=== PATIENT | female | born 1955 | race Caucasian/White ===

== ENCOUNTER → 2017-03-21 | Outpatient (CLI) | payer OTHER ==
--- NOTE | 2017-03-23 07:51 | MM ---
Reason for exam: screening (asymptomatic). Last mammogram was performed 4 years and 1 month ago. History: Patient is postmenopausal. Benign excisional biopsy of the left breast, December 30, 1997. Physical Findings: A clinical breast exam by your physician is recommended on an annual basis and results should be correlated with mammographic findings. MG 3D Screening Mammo W/Cad Bilateral CC and MLO view(s) were taken. Prior study comparison: February 12, 2013, bilateral digital screening mammo w/CAD. January 14, 2010, bilateral digital screening mammogram. The breast tissue is heterogeneously dense. This may lower the sensitivity of mammography. No significant changes when compared with prior studies. ASSESSMENT: Negative, BI-RAD 1 RECOMMENDATION: Routine screening mammogram of both breasts in 1 year.
== END | disposition home or self-care (01) ==
LOC: RADMAMWWP 09:20
PROVIDERS: ATTEND Obstetrics & Gynecology
DX: Z12.31 Encounter for screening mammogram for malignant neoplasm of breast (principal)
CPT/HCPCS: 77063; G0202

== ENCOUNTER → 2017-12-27 | Outpatient (CLI) | payer OTHER | END | disposition home or self-care (01) | LOC: RADMRIMAIN 17:47 | PROVIDERS: ATTEND Internal Medicine Hematology & Oncology | DX: C50.111 Malignant neoplasm of central portion of right female breast (principal) | CPT/HCPCS: 82565 ==

== ENCOUNTER → 2017-12-29 | Outpatient (CLI) | payer OTHER ==
--- NOTE | 2018-01-05 09:22 | BMR ---
EXAMINATION TYPE: MR breast BILAT wo/w con DATE OF EXAM: 12/29/2017 COMPARISON: Mammogram 03/21/2017 HISTORY: Breast cancer TECHNIQUE: A series of fat and water weighted images in the long and short axis views of both breasts are obtained in conjunction with dynamic contrast MRI with subtraction technique. The patient was i njected with 10 mL intravenous Gadavist gadolinium contrast. Three-dimensional and additional postp rocessing imaging is created on independent workstation and reviewed during official interpretation o f this study. FINDINGS: Right breast shows large asymmetric area of suspicious abnormal enhancement which has poorl y defined margins, extends to the nipple and skin in the area over the periareolar region and measure s at least 6 to 7 cm in diameter and is predominantly in the upper aspect of the right breast in the anterior and middle position. Additionally, an enlarged right axillary lymph node is present. Within the right middle lobe incidental note is made of a focus of abnormal soft tissue which is ill-defined . No internal mammary adenopathy evident. Left breast shows background stippled foci of enhancement. No axillary or internal mammary adenopathy . No suspicious mass like enhancement. T2 bright foci within the central portion of the left breast c ompatible with cysts. IMPRESSION: Right breast known breast carcinoma, BI-RADS 6. Findings suspicious for metastatic disease to the rig ht axilla, indeterminate right middle lobe abnormal soft tissue, chest CT is suggested. Left breast benign, BI-RADS 2.
== END | disposition home or self-care (01) ==
LOC: RADMRIMAIN 11:35
PROVIDERS: ATTEND Internal Medicine Hematology & Oncology
DX: C50.111 Malignant neoplasm of central portion of right female breast (principal)
CPT/HCPCS: 77059; 0159T; A9581

== ENCOUNTER → 2018-04-10 | Outpatient (CLI) | payer OTHER ==
--- NOTE | 2018-04-10 12:52 | XR ---
EXAMINATION TYPE: XR lumbar spine 3V, XR sacrum coccyx 3 views DATE OF EXAM: 04/10/2018 COMPARISON: NONE HISTORY: 62-year-old female with low back pain FINDINGS: Lumbar spine: 5 lumbar type vertebral bodies. Mild multilevel degenerative disc disease. Facet arthropathy lower roshni mbar spine. Alignment is maintained and vertebral body heights are preserved. Sacrum coccyx: The SI joints appear symmetric and intact as does the pubic symphysis. Small delineation to the arcua te lines of the sacrum. No angulated or displaced sacrococcygeal fracture. IMPRESSION: 1. Lumbar spine: Mild multilevel degenerative disc disease. Facet arthropathy lower lumbar spine. No vertebral compression collapse or malalignment. 2. Sacrum and coccyx: No angulated or displaced tailbone fracture.
== END | disposition home or self-care (01) ==
LOC: RADXRMAIN 09:48
PROVIDERS: ATTEND Internal Medicine Hematology & Oncology
DX: M51.36 Other intervertebral disc degeneration, lumbar region (principal); M46.96 Unspecified inflammatory spondylopathy, lumbar region; C50.111 Malignant neoplasm of central portion of right female breast; R19.7 Diarrhea, unspecified; Z71.3 Dietary counseling and surveillance
CPT/HCPCS: 72100; 72220

== ENCOUNTER → 2018-07-12 | Outpatient (CLI) | payer OTHER ==
--- NOTE | 2018-07-14 11:03 | BMR ---
EXAMINATION TYPE: MR breast BILAT wo/w con DATE OF EXAM: 07/12/2018 COMPARISON: Prior bilateral breast MRI December 29 2017 HISTORY: Right breast cancer CONTRAST: Multiplanar, multisequence images of the breasts were acquired utilizing 8.5 mL intravenous Gadavist gadolinium contrast. TECHNIQUE: A series of fat and water weighted images in the long and short axis views of both breasts are obtained in conjunction with dynamic contrast MRI with subtraction technique. Three-dimensional and additional postprocessing imaging is created on independent workstation and reviewed during offi cial interpretation of this study. FINDINGS: There is redemonstration of mild to moderate scattered fibroglandular tissue throughout bot h breasts. There is new artifact from Mediport catheter device in the upper inner quadrant left breas t deep tissue. T2 weighted images show scattered small simple appearing cysts bilaterally for referen ce is 6 mm cyst in the left breast axial image 22. There is mild background enhancement seen bilatera lly. Regarding the left breast there is redemonstration of round foci of enhancement felt to reflect adeno sis or other benign process. No new suspicious pathologic enhancement is seen. With regarding to the right breast there is persistent area of nonmass enhancement predominantly at t he level of the nipple extending into the upper breast measuring roughly 7 cm transversely by 5 cm AP diameter. This area is slightly diminished in size or prominence from prior. On current study dynami c postcontrast images show fairly benign kinetics of progressive enhancement with occasional focus of rapid uptake and washout that remains present. There is redemonstration of extension to the subareol ar complex with slight nipple inversion that is felt stable. Mild skin thickening in the right breast remains present. On current exam there is interval improvement in right axillary adenopathy with onl y subcentimeter lesions identified, for reference largest inferiorly measures 13 x 5 mm which correla rigoberto with coronal image 24. IMPRESSION: Some improvement in large diffuse right breast neoplasm with treatment. Improvement in ri ght axillary adenopathy noted. No new suspicious neoplasm in left breast. BI-RADS 6 biopsy-proven cancer right breast. BI-RADS 2 benign findings left breast Recommendation: Appropriate surgical and oncologic management.
== END | disposition home or self-care (01) ==
LOC: RADMRIMAIN 12:18
PROVIDERS: ATTEND Surgery
DX: C50.911 Malignant neoplasm of unspecified site of right female breast (principal)
CPT/HCPCS: 77059; 0159T; A9581

== ENCOUNTER 2018-11-11 09:56 | Inpatient (IN) | payer OTHER ==
[2018-11-11] MEDS ORDERED: ACETAMINOPHEN TAB 500 MG TAB PO STA (10:27)
[2018-11-11] MEDS ORDERED: IBUPROFEN 600 MG TAB PO STA (10:27)
[2018-11-11] MEDS ORDERED: PIPERACILLIN-TAZOBACTAM 3.375 GM in SODIUM CHLORIDE 0.9% 100 ML IVPB STA (10:27)
--- NOTE | 2018-11-11 10:30 | ED ---
General Adult HPI - General Chief complaint: Fever Stated complaint: FEVER POST RADIATION, COUGH Time Seen by Provider: 11/11/18 10:00 Source: patient, RN notes reviewed Mode of arrival: ambulatory Limitations: no limitations - History of Present Illness Initial comments: This is a 62-year-old female who presents emergency Department with a past medical history breast cancer. Patient had a mastectomy in July and finished radiation October 24. Patient states last 3 or 4 days she's not been feeling well patient states she's had a fever over the last 3 days. Patient states she has a slight cough but no sputum production. Patient denies any difficulty breathing shortest breath per patient denies any fever chills per patient denies any dysuria hematuria urinary frequency. Patient denies any abdominal pain patient denies nausea vomiting diarrhea. Patient states the skin over the mastectomy site is red and warm but has been since she's had radiation and she was told that was normal. Patient denies any furthering of the redness. Patient denies any other rashes or areas of redness. - Related Data Home Medications Medication Instructions Recorded Confirmed Acetaminophen Tab [Tylenol Tab] 1,000 mg PO Q6HR 11/11/18 11/11/18 Anastrozole [Arimidex] 1 mg PO DAILY 11/11/18 11/11/18 Multivitamins, Thera [Multivitamin 1 tab PO DAILY 11/11/18 11/11/18 (formulary)] Allergies Allergy/AdvReac Type Severity Reaction Status Date / Time cefaclor [From [facility]] Allergy Swelling Verified 11/11/18 11:00 Review of Systems ROS Statement: Those systems with pertinent positive or pertinent negative responses have been documented in the HPI. ROS Other: All systems not noted in ROS Statement are negative. Past Medical History Past Medical History: Cancer Additional Past Medical History / Comment(s): heart murmur, bronchitis, Rt breast CA History of Any Multi-Drug Resistant Organisms: None Reported Past Surgical History: No Surgical Hx Reported Additional Past Surgical History / Comment(s): Breast Surgery, Past Psychological History: No Psychological Hx Reported Smoking Status: Never smoker Past Alcohol Use History: None Reported Past Drug Use History: None Reported General Exam - General Exam Comments Initial Comments: GENERAL: Patient is well-developed and well-nourished. Patient is nontoxic and well- hydrated and is in mild distress. ENT: Neck is soft and supple. No significant lymphadenopathy is noted. Oropharynx is clear. Moist mucous membranes. Neck has full range of motion without eliciting any pain. EYES: The sclera were anicteric and conjunctiva were pink and moist. Extraocular movements were intact and pupils were equal round and reactive to light. Eyelids were unremarkable. PULMONARY: Unlabored respirations. Good breath sounds bilaterally. No audible rales rhonchi or wheezing was noted. CARDIOVASCULAR: There is a regular rate and rhythm without any murmurs gallops or rubs. ABDOMEN: Soft and nontender with normal bowel sounds. No palpable organomegaly was noted. There is no palpable pulsatile mass. SKIN: There is an area of erythema around the right mastectomy site but the patient and both say that area is not any larger than it has been since the radiation. NEUROLOGIC: Patient is alert and oriented x3. Cranial nerves II through XII are grossly intact. Motor and sensory are also intact. Normal speech, volume and content. Symmetrical smile. MUSCULOSKELETAL: Normal extremities with adequate strength and full range of motion. No lower extremity swelling or edema. No calf tenderness. LYMPHATICS: No significant lymphadenopathy is noted PSYCHIATRIC: Normal psychiatric evaluation. Limitations: no limitations Course Vital Signs 11/11/18 11/11/18 11/11/18 10:00 10:30 12:45 Temperature 99.2 F 102.9 F H 102.4 F H Pulse Rate 125 H 96 Respiratory 20 20 Rate Blood Pressure 147/78 118/62 O2 Sat by Pulse 96 96 Oximetry Medical Decision Making - Medical Decision Making EKG shows sinus tachycardia at 108 bpm NC interval 146 QRS is 92 QT interval 320 QTC is 428. Patient's EKG shows no ST segment elevation or depression or T wave abnormalities are noted. Chest x-ray shows a left lower lobe pneumonia. I started the patient on Zosyn initially but will probably switch to Levaquin now that the definitive diagnosis of pneumonia has been found. - Lab Data Result diagrams: 11/11/18 10:35 11/11/18 10:35 Lab Results 11/11/18 11/11/18 11/11/18 Range/Units 10:35 10:35 10:35 WBC 11.1 H (3.8-10.6) k/uL RBC 4.05 (3.80-5.40) m/uL Hgb 12.3 (11.4-16.0) gm/dL Hct 36.4 (34.0-46.0) % MCV 89.8 (80.0-100.0) fL MCH 30.5 (25.0-35.0) pg MCHC 33.9 (31.0-37.0) g/dL RDW 12.4 (11.5-15.5) % Plt Count 303 (150-450) k/uL Neutrophils % 89 % Lymphocytes % 5 % Monocytes % 5 % Eosinophils % 0 % Basophils % 0 % Neutrophils # 9.9 H (1.3-7.7) k/uL Lymphocytes # 0.6 L (1.0-4.8) k/uL Monocytes # 0.5 (0-1.0) k/uL Eosinophils # 0.0 (0-0.7) k/uL Basophils # 0.0 (0-0.2) k/uL PT (9.0-12.0) sec INR (<1.2) APTT (22.0-30.0) sec Sodium 137 (137-145) mmol/L Potassium 4.1 (3.5-5.1) mmol/L Chloride 103 (98-107) mmol/L Carbon Dioxide 25 (22-30) mmol/L Anion Gap 9 mmol/L BUN 17 (7-17) mg/dL Creatinine 0.57 (0.52-1.04) mg/dL Est GFR (CKD-EPI)AfAm >90 (>60 ml/min/1.73 sqM) Est GFR (CKD-EPI)NonAf >90 (>60 ml/min/1.73 sqM) Glucose 112 H (74-99) mg/dL Plasma Lactic Acid Maxim (0.7-2.0) mmol/L Calcium 9.6 (8.4-10.2) mg/dL Total Bilirubin 0.6 (0.2-1.3) mg/dL AST 56 H (14-36) U/L ALT 99 H (9-52) U/L Alkaline Phosphatase 243 H (38-126) U/L Total Protein 6.7 (6.3-8.2) g/dL Albumin 3.9 (3.5-5.0) g/dL Urine Color Urine Appearance (Clear) Urine pH (5.0-8.0) Ur Specific [place] (1.001-1.035) Urine Protein (Negative) Urine Glucose (UA) (Negative) Urine Ketones (Negative) Urine Blood (Negative) Urine Nitrite (Negative) Urine Bilirubin (Negative) Urine Urobilinogen (<2.0) mg/dL Ur Leukocyte Esterase (Negative) Urine RBC (0-5) /hpf Urine WBC (0-5) /hpf Ur Squamous Epith Cells (0-4) /hpf Urine Mucus (None) /hpf Influenza Type A RNA Not Detected (Not Detectd) Influenza Type B (PCR) Not Detected (Not Detectd) Group A Strep Rapid (Negative) 11/11/18 11/11/18 11/11/18 Range/Units 10:35 10:35 10:35 WBC (3.8-10.6) k/uL RBC (3.80-5.40) m/uL Hgb (11.4-16.0) gm/dL Hct (34.0-46.0) % MCV (80.0-100.0) fL MCH (25.0-35.0) pg MCHC (31.0-37.0) g/dL RDW (11.5-15.5) % Plt Count (150-450) k/uL Neutrophils % % Lymphocytes % % Monocytes % % Eosinophils % % Basophils % % Neutrophils # (1.3-7.7) k/uL Lymphocytes # (1.0-4.8) k/uL Monocytes # (0-1.0) k/uL Eosinophils # (0-0.7) k/uL Basophils # (0-0.2) k/uL PT 9.5 (9.0-12.0) sec INR 0.9 (<1.2) APTT 23.8 (22.0-30.0) sec Sodium (137-145) mmol/L Potassium (3.5-5.1) mmol/L Chloride (98-107) mmol/L Carbon Dioxide (22-30) mmol/L Anion Gap mmol/L BUN (7-17) mg/dL Creatinine (0.52-1.04) mg/dL Est GFR (CKD-EPI)AfAm (>60 ml/min/1.73 sqM) Est GFR (CKD-EPI)NonAf (>60 ml/min/1.73 sqM) Glucose (74-99) mg/dL Plasma Lactic Acid Maxim 1.0 (0.7-2.0) mmol/L Calcium (8.4-10.2) mg/dL Total Bilirubin (0.2-1.3) mg/dL AST (14-36) U/L ALT (9-52) U/L Alkaline Phosphatase (38-126) U/L Total Protein (6.3-8.2) g/dL Albumin (3.5-5.0) g/dL Urine Color Yellow Urine Appearance Clear (Clear) Urine pH 6.0 (5.0-8.0) Ur Specific [place] 1.019 (1.001-1.035) Urine Protein Trace H (Negative) Urine Glucose (UA) Negative (Negative) Urine Ketones Negative (Negative) Urine Blood Trace H (Negative) Urine Nitrite Negative (Negative) Urine Bilirubin Negative (Negative) Urine Urobilinogen 3.0 (<2.0) mg/dL Ur Leukocyte Esterase Negative (Negative) Urine RBC 6 H (0-5) /hpf Urine WBC <1 (0-5) /hpf Ur Squamous Epith Cells 1 (0-4) /hpf Urine Mucus Rare H (None) /hpf Influenza Type A RNA (Not Detectd) Influenza Type B (PCR) (Not Detectd) Group A Strep Rapid (Negative) 11/11/18 Range/Units 12:45 WBC (3.8-10.6) k/uL RBC (3.80-5.40) m/uL Hgb (11.4-16.0) gm/dL Hct (34.0-46.0) % MCV (80.0-100.0) fL MCH (25.0-35.0) pg MCHC (31.0-37.0) g/dL RDW (11.5-15.5) % Plt Count (150-450) k/uL Neutrophils % % Lymphocytes % % Monocytes % % Eosinophils % % Basophils % % Neutrophils # (1.3-7.7) k/uL Lymphocytes # (1.0-4.8) k/uL Monocytes # (0-1.0) k/uL Eosinophils # (0-0.7) k/uL Basophils # (0-0.2) k/uL PT (9.0-12.0) sec INR (<1.2) APTT (22.0-30.0) sec Sodium (137-145) mmol/L Potassium (3.5-5.1) mmol/L Chloride (98-107) mmol/L Carbon Dioxide (22-30) mmol/L Anion Gap mmol/L BUN (7-17) mg/dL Creatinine (0.52-1.04) mg/dL Est GFR (CKD-EPI)AfAm (>60 ml/min/1.73 sqM) Est GFR (CKD-EPI)NonAf (>60 ml/min/1.73 sqM) Glucose (74-99) mg/dL Plasma Lactic Acid Maxim (0.7-2.0) mmol/L Calcium (8.4-10.2) mg/dL Total Bilirubin (0.2-1.3) mg/dL AST (14-36) U/L ALT (9-52) U/L Alkaline Phosphatase (38-126) U/L Total Protein (6.3-8.2) g/dL Albumin (3.5-5.0) g/dL Urine Color Urine Appearance (Clear) Urine pH (5.0-8.0) Ur Specific [place] (1.001-1.035) Urine Protein (Negative) Urine Glucose (UA) (Negative) Urine Ketones (Negative) Urine Blood (Negative) Urine Nitrite (Negative) Urine Bilirubin (Negative) Urine Urobilinogen (<2.0) mg/dL Ur Leukocyte Esterase (Negative) Urine RBC (0-5) /hpf Urine WBC (0-5) /hpf Ur Squamous Epith Cells (0-4) /hpf Urine Mucus (None) /hpf Influenza Type A RNA (Not Detectd) Influenza Type B (PCR) (Not Detectd) Group A Strep Rapid Negative (Negative) Disposition Clinical Impression: Pneumonia Disposition: ADMITTED IP TO THIS HOSP Referrals: Benjy Kumar MD [STAFF PHYSICIAN] - 1-2 days Time of Disposition: 13:19
[2018-11-11 11:09] LABS: INR 0.9 (<1.2)
[2018-11-11 11:10] LABS: Partial Thromboplastin Time 23.8 sec (22.0-30.0); Prothrombin Time 9.5 sec (9.0-12.0)
[2018-11-11 11:13] LABS: Appearance,Urine Clear (Clear); Bilirubin,Urine Negative (Negative); Blood,Urine Trace (Negative); Color,Urine Yellow; Glucose,Urine (UA) Negative (Negative); Ketones,Urine Negative (Negative); Leukocyte Esterase,Urine Negative (Negative); Mucus,Urine Rare /hpf; Nitrite,Urine Negative (Negative); Protein,Urine Trace (Negative); RBC,Urine 6 /hpf (0-5); Specific Gravity,Urine 1.019 (1.001-1.035); Squamous Epithelial Cell,Urine 1 /hpf (0-4); WBC,Urine <1 /hpf (0-5)
[2018-11-11 11:16] LABS: ALT 99 U/L (9-52); AST 56 U/L (14-36); Albumin 3.9 g/dL (3.5-5.0); Alkaline Phosphatase 243 U/L (38-126); Anion Gap 9 mmol/L; Basophils % (A) 0 %; Blood Urea Nitrogen 17 mg/dL (7-17); Calcium 9.6 mg/dL (8.4-10.2); Carbon Dioxide 25 mmol/L (22-30); Chloride 103 mmol/L (98-107); Eosinophils % (A) 0 %; Glucose 112 mg/dL (74-99); HCT 36.4 % (34.0-46.0); HGB 12.3 gm/dL (11.4-16.0); Lymphocytes # (A) 0.6 k/uL (1.0-4.8); Lymphocytes % (A) 5 %; MCH 30.5 pg (25.0-35.0); MCHC 33.9 g/dL (31.0-37.0); MCV 89.8 fL (80.0-100.0); Mean Platelet Volume 6.8; Monocytes # (A) 0.5 k/uL (0-1.0); Monocytes % (A) 5 %; Neutrophils # (A) 9.9 k/uL (1.3-7.7); Neutrophils % (A) 89 %; Platelet Count 303 k/uL (150-450); Potassium 4.1 mmol/L (3.5-5.1); RBC 4.05 m/uL (3.80-5.40); RDW 12.4 % (11.5-15.5); Sodium 137 mmol/L (137-145); Total Bilirubin 0.6 mg/dL (0.2-1.3); Total Protein 6.7 g/dL (6.3-8.2); WBC 11.1 k/uL (3.8-10.6)
[2018-11-11] MEDS: SODIUM CHLORIDE 0.9% 500 ML 500 ML IV SCH ×3 (11:30→12:43)
--- NOTE | 2018-11-11 12:34 | XR ---
EXAMINATION TYPE: XR chest 2V DATE OF EXAM: 11/11/2018 COMPARISON: None HISTORY: 62-year-old female with fever since last radiation treatment TECHNIQUE: AP and lateral views FINDINGS: Heart borderline enlarged. Diffuse interstitial densities and periportal cuffing. No consolidation or pleural effusion. IMPRESSION: Interstitial changes. Correlate for bronchitis, asthma, or atypical pneumonias. No focal infiltrate t o suggest a conventional pneumonia.
[2018-11-11] MEDS ORDERED: LEVOFLOXACIN 750MG-D5W PMX 750 MG in DEXTROSE/WATER 1 150ML.BAG IVPB STA (13:19)
[2018-11-11] MEDS ORDERED: PNEUMONIA PROTOCOL UTILIZED 1 EACH MISC PO PRN (13:19)
[2018-11-11] MEDS: SODIUM CHLORIDE 0.9% 1,000 ML IV SCH (15:28)
[2018-11-11 17:41] VITALS: BMI 34.5
--- NOTE | 2018-11-11 19:45 | P.CONS ---
History of Present Illness - Reason for Consult Consult date: 11/11/18 Breast cancer Requesting physician: Austin Smith - Chief Complaint Fever and cough - History of Present Illness Ms. Can is a very pleasant 62-year-old female with a history of right breast cancer who is here for fever and increasing cough for the past 3 days at home. Her cancer history starts in March 2017 when she had a negative screening mammogram. She presented with enlarging right breast mass and nipple changes in November 2017. Skin biopsy and a biopsy of a palpable mass were obtained due to concerns of inflammatory breast cancer. Pathology revealed a grade 2 invasive lobular carcinoma in the right breast without skin involvement. ER/DC positive, HER-2 negative by fish. She had a PET scan that was negative. She was started on Arimidex therapy on 01/24/18. Verzinio was added in 02/2018. Letrozole was switched to Femara a few months later. She was then seen for a second opinion by breast surgeon, Dr. Chung at [facility] and MRI of the breast revealed significant improvement. She went on to have a right mastectomy on 08/17/18 which revealed an 11 cm grade 2 invasive lobular carcinoma with 8 out of 16 positive lymph nodes. She subsequently underwent right chest wall radiation, which she completed on 10/31/19. Plan was to start adjuvant chemotherapy with Taxotere and Cytoxan over the next couple weeks, after she heals from surgery, however she ended up presenting with her cough and fevers. Workup in the ER revealed a WBC of 11.1, neutrophil predominant, normal hemoglobin and platelets, normal CMP except for mildly elevated AST and ALT, <100, Alk phos 243, UA negative, and negative Flu and rapid strep testing. Chest x-ray reveals interstitial changes, possibly due to an atypical pneumonia. She was started on antibiotics with Levaquin and Zosyn and admitted for further care. Review of Systems All systems: negative Constitutional: Reports as per HPI Past Medical History Past Medical History: Cancer Additional Past Medical History / Comment(s): heart murmur, bronchitis, Rt breast CA History of Any Multi-Drug Resistant Organisms: None Reported Past Surgical History: No Surgical Hx Reported Additional Past Surgical History / Comment(s): Breast Surgery, Past Psychological History: No Psychological Hx Reported Smoking Status: Never smoker Past Alcohol Use History: None Reported Past Drug Use History: None Reported - Past Family History Mother Family Medical History: Cancer Medications and Allergies Home Medications Medication Instructions Recorded Confirmed Type Acetaminophen Tab [Tylenol Tab] 1,000 mg PO Q6HR 11/11/18 11/11/18 History Anastrozole [Arimidex] 1 mg PO DAILY 11/11/18 11/11/18 History Multivitamins, Thera [Multivitamin 1 tab PO DAILY 11/11/18 11/11/18 History (formulary)] Allergies Allergy/AdvReac Type Severity Reaction Status Date / Time cefaclor [From [facility]] Allergy Swelling Verified 11/11/18 11:00 Physical Exam Vitals: Vital Signs Temp Pulse Resp BP Pulse Ox 11/11/18 17:10 98.6 F 88 18 129/82 97 11/11/18 17:06 98.6 F 88 18 129/82 97 11/11/18 15:29 88 18 122/72 97 11/11/18 13:19 100.9 F H 92 18 118/62 98 11/11/18 12:45 102.4 F H 96 20 118/62 96 11/11/18 10:30 102.9 F H 11/11/18 10:00 99.2 F 125 H 20 147/78 96 Intake and Output 11/11/18 11/11/18 11/11/18 06:59 14:59 22:59 Intake Total 1700 Balance 1700 Intake: Amount of Fluid Infused ( 1700 ml) Other: Weight 85.729 kg General: In no acute distress. HEENT: Mucosa moist. Neck: Neck supple. Lymph: No cervical/supraclavicular LAD. Lungs: CTA-B without wheezing or rhonchi. Heart: RRR. No LE edema. Abdomen: Soft, nontender, nondistended, with positive bowel sounds. MSK: 4/4 strength in all 4 extremities. Neuro: Alert and oriented 3. No obvious gross neurologic deficits. Skin: No jaundice or rash. Psych: Appropriate affect. Results CBC & Chem 7: 11/11/18 10:35 11/11/18 10:35 Labs: Abnormal Lab Results - Last 24 Hours (Table) 11/11/18 11/11/18 11/11/18 Range/Units 10:35 10:35 10:35 WBC 11.1 H (3.8-10.6) k/uL Neutrophils # 9.9 H (1.3-7.7) k/uL Lymphocytes # 0.6 L (1.0-4.8) k/uL Glucose 112 H (74-99) mg/dL AST 56 H (14-36) U/L ALT 99 H (9-52) U/L Alkaline Phosphatase 243 H (38-126) U/L Urine Protein Trace H (Negative) Urine Blood Trace H (Negative) Urine RBC 6 H (0-5) /hpf Urine Mucus Rare H (None) /hpf Microbiology - Last 24 Hours (Table) 11/11/18 10:35 Urine Culture - Preliminary Urine,Voided Chest x-ray: report reviewed Assessment and Plan Assessment: 1. Pneumonia 2. Breast cancer Plan: Ms. Tay is a very pleasant 62-year-old female with a history of right- sided breast cancer, invasive lobular carcinoma, status post neoadjuvant endocrine therapy followed by right mastectomy with lymph node dissection and adjuvant radiation, who is here for fevers and a cough, found to have a pneumonia. She is currently on broad-spectrum antibiotics for her pneumonia. As for her breast cancer postoperatively she was restarted on Arimidex, will continue. Otherwise she is healing from her recent adjuvant radiation, which ended on 10/31/18. She is due to start adjuvant chemotherapy with TC over the next couple weeks. No objections for discharge from oncology stand point. She should however follow up with us in clinic prior to starting chemotherapy, which is scheduled on 11/27/17. Otherwise continue Arimidex for now. Discussed with the patient and her in detail and they are agreeable to the plan. All of her questions were answered.
[2018-11-11] MEDS: ENOXAPARIN 40 MG/0.4 ML SYRINGE SQ SCH (21:19)
[2018-11-11] MEDS: AZITHROMYCIN 500 MG TAB PO SCH (21:19)
[2018-11-11] MEDS: ANASTROZOLE 1 MG TAB PO SCH (21:19)
[2018-11-11] MEDS: ACETAMINOPHEN TAB 325 MG TAB PO PRN (21:34)
--- NOTE | 2018-11-11 22:50 | HP ---
HISTORY AND PHYSICAL DATE OF ADMISSION: 11/11/2018. DATE OF SERVICE: 11/11/2018. PRESENTING COMPLAINT: Fever. HISTORY OF PRESENTING COMPLAINT: A very pleasant 62-year-old patient of Dr. Patel. The patient has been diagnosed with grade 2 invasive lobular carcinoma and did undergo right breast mastectomy. The patient subsequently has undergone radiation treatment with some radiation burn, finished on October 24. The patient now presents with 4 days of some cough. No fever. Very slight cough. No sputum. Appetite is fair. Does have achiness all over. Denies any urinary symptoms. There was no sputum production. Otherwise, minimal cough. Chest x-ray did show some infiltrates. Started on antibiotics in the ER. Admitted for the same. The patient has skin changes around the right chest wall appear to be no different than his baseline. REVIEW OF SYSTEMS: CONSTITUTIONAL: Fevers. HEENT: None. RESPIRATORY: As above. CARDIOVASCULAR: None. GASTROINTESTINAL: None. GENITOURINARY: None. MUSCULOSKELETAL: Aches and pains in the joints. DERMATOLOGICAL: Redness around the right mastectomy site. HEMATOLOGICAL: None. LYMPHATICS: None. PSYCHIATRY: None. NEUROLOGICAL: None. PAST MEDICAL HISTORY: Breast cancer, insomnia, osteoarthritis. PAST SURGICAL HISTORY: Right mastectomy. SOCIAL HISTORY: No smoking, no alcohol, . FAMILY HISTORY: Cancer, type unknown. HOME MEDICATIONS: 1. Multivitamin 1 tablet p.o. daily. 2. Arimidex 1 mg p.o. daily. 3. Tylenol 1000 mg p.o. every 6 hours p.r.n. ALLERGIES: CECLOR. PHYSICAL EXAMINATION: VITAL SIGNS: On presentation, temperature 100.9, pulse 92, respiratory rate 18, blood pressure 108/62, pulse ox 98% on room air. GENERAL APPEARANCE: Well built. BMI 34.6. Sitting up, tired appearing. EYES: Pupils equal. Conjunctivae normal. HEENT: External nose and ears normal. Oral cavity normal. NECK: JVD not raised. Mass not palpable. Respiratory effort normal. LUNGS: Fair entry. CARDIOVASCULAR: First and second sounds no edema. ABDOMEN: Soft, nontender. Liver and spleen not palpable. LYMPHATICS: No lymph nodes palpable in the neck or axillae. PSYCHIATRY: Alert and oriented x3. Mood normal. Right chest wall at the mastectomy site shows some signs of inflammation. This was checked in the presence of the nurse, taking care of her and acting as a marketing sales supervisor. NEUROLOGIC: Pupils equal. No facial asymmetry. Power and sensation grossly intact. INVESTIGATIONS: Reviewed in the clinical context. White count 11.1, hemoglobin 12.3, potassium 4.1. BUN and creatinine normal. AST, ALT 56, 99. Influenza A and B negative. Chest x-ray film personally reviewed by me shows some infiltrate on the right side, very scanty. EKG tracing personally reviewed by me shows normal sinus rhythm. ASSESSMENT: 1. Possible right sided viral pneumonitis. Cannot rule out a bacterial component. 2. Right chest wall inflammation secondary to radiation injury with no worsening as per the patient, that also possibly could be a source of infection/fever. 3. Breast cancer with mastectomy. The patient is currently on Arimidex. 4. Obesity, BMI 34.6. 5. Primary osteoarthritis. 6. Chronic insomnia, idiopathic. PLAN: Patient will be kept on IV Zosyn. We will also add Zithromax. Other home medications are resumed. Lovenox for DVT prophylaxis. Consultation will be obtained from Oncology. Care was discussed the patient. Questions were answered. MMODL / IJN: [id number] /
[2018-11-12] MEDS: PIPERACILLIN-TAZOBACTAM 3.375 GM in SODIUM CHLORIDE 0.9% 100 ML IVPB SCH ×4 (00:09→23:32)
[2018-11-12] MEDS: IBUPROFEN 600 MG TAB PO PRN (00:10)
[2018-11-12] MEDS: SODIUM CHLORIDE 0.9% 1,000 ML IV SCH ×3 (01:30→20:32)
[2018-11-12] MEDS: ACETAMINOPHEN TAB 325 MG TAB PO PRN ×2 (03:12→20:37)
--- NOTE | 2018-11-12 07:42 | XR ---
EXAMINATION TYPE: XR chest 2V DATE OF EXAM: 11/12/2018 COMPARISON: Chest x-ray from yesterday HISTORY: Pneumonia progress. Recent right-sided mastectomy with fever. TECHNIQUE: Frontal and lateral views of the chest are obtained. FINDINGS: Somewhat low lung volumes are redemonstrated. There is no definitive new suspicious focal a ir space opacity, pleural effusion, or pneumothorax seen. Patchy retrocardiac opacity remains present . The cardiac silhouette size is stable and enlarged. The osseous structures are intact. IMPRESSION: Perhaps patchy retrocardiac acute infiltrate and/or atelectasis. No new infiltrate is se en. No significant change from prior.
[2018-11-12] MEDS: ANASTROZOLE 1 MG TAB PO SCH (07:51)
[2018-11-12] MEDS: MULTIVITAMINS, THERA 1 EACH TAB PO SCH (07:51)
[2018-11-12] MEDS: ENOXAPARIN 40 MG/0.4 ML SYRINGE SQ SCH (07:51)
[2018-11-12] MEDS: AZITHROMYCIN 500 MG TAB PO SCH (07:51)
[2018-11-12] MEDS ORDERED: LEVOFLOXACIN 750 MG TAB PO SCH (09:00)
[2018-11-12] MEDS ORDERED: VANCOMYCIN IV PER PHARMACY 1 EACH MISC MISCELLANE PRN (12:43)
[2018-11-12] MEDS: VANCOMYCIN 1,750 MG in SODIUM CHLORIDE 0.9% 500 ML 500 ML IVPB SCH (13:55)
--- NOTE | 2018-11-12 16:31 | CT ---
EXAMINATION TYPE: CT chest wo con DATE OF EXAM: 11/12/2018 COMPARISON: None HISTORY: infection at site of right mastectomy CT DLP: 489.9 mGycm. Automated Exposure Control for Dose Reduction was Utilized. TECHNIQUE: CT scan of the thorax is performed without IV contrast. FINDINGS: The lungs are clear of consolidation. There is some mild atelectasis at the lung bases. There is no p leural effusion. There is no evidence of pneumothorax. There is no mediastinal adenopathy. There are no hilar masses. Heart size is normal. There is no pericardial effusion. Upper abdominal soft tissues are unremarkable. There is increased subcutaneous density on the right anterior chest wall at the mastectomy site. Ther e is linear air in the soft tissues. I see no discrete fluid collection. There is increased density t hat overall measures 10 x 2 cm at the surgery site. IMPRESSION: There is mild atelectasis in the lowe r lung davalos. Right mastectomy with increased subcutaneous density and linear air collection consistent with phlegm on. No definite drainable fluid collection seen. This appearance would be consistent with abscess jovanna t is mostly drained.
[2018-11-12 18:56] LABS: Basophils % (A) 0 %; Eosinophils # (A) 0.2 k/uL (0-0.7); Eosinophils % (A) 2 %; HCT 34.2 % (34.0-46.0); HGB 10.6 gm/dL (11.4-16.0); Lymphocytes % (A) 10 %; MCH 28.8 pg (25.0-35.0); MCHC 30.9 g/dL (31.0-37.0); MCV 93.1 fL (80.0-100.0); Mean Platelet Volume 6.8; Monocytes # (A) 0.5 k/uL (0-1.0); Monocytes % (A) 5 %; Neutrophils # (A) 8.1 k/uL (1.3-7.7); Neutrophils % (A) 81 %; Platelet Count 319 k/uL (150-450); RBC 3.67 m/uL (3.80-5.40); RDW 12.4 % (11.5-15.5)
--- NOTE | 2018-11-12 22:31 | PN ---
PROGRESS NOTE DATE OF SERVICE: 11/12/2018 PRESENTING COMPLAINT: Fever. INTERVAL HISTORY: This is a patient with breast cancer with right mastectomy, presented with fevers. The patient was being treated for possible pneumonia with minimal respiratory symptoms. Last night the patient had a breakdown of skin on the right anterior chest wall. There was some drainage. Culture was sent off. Vancomycin was added today. There was some drainage. The patient spiked a bit more fever. The patient's is present. REVIEW OF SYSTEMS: Done for constitutional, cardiovascular, GI, pulmonary and findings as above. CURRENT MEDICATIONS: Reviewed that include IV Zosyn, vancomycin, Zithromax. PHYSICAL EXAMINATION: T-max was 103 last night, pulse 68, respirations 17, blood pressure 110/61, pulse ox 98% on room air. GENERAL APPEARANCE: Sitting up, comfortable. EYES: Pupils equal. Conjunctivae normal. NECK: JVD not raised. Mass not palpable. Respiratory effort normal. LUNGS: Fair air entry. CARDIOVASCULAR: First and second sounds normal. No edema. ABDOMEN: Soft, nontender. Liver and spleen not palpable. Right chest wall anteriorly in the midclavicular line area of breakdown with some drainage. INVESTIGATIONS: Blood work pending. ASSESSMENT: 1. Right anterior chest wall possible abscess/cellulitis causing fever. 2. Possible right-sided viral pneumonitis, cannot rule out a bacterial component. 3. Right mastectomy for breast cancer, patient on Arimidex. 4. Obesity, BMI 34.6. 5. Primary osteoarthritis. 6. Chronic insomnia, idiopathic. PLAN: Cultures have been sent out from the drainage. We will get a surgical opinion to see if anything needs to be drained. Also, ID was consulted. The patient is wanting to go home for Yudith. Did explain to her and the the importance of staying and getting this taken care of. They do understand the same. Repeat labs in the morning. MMODL / IJN: [id number] /
[2018-11-13] MEDS: VANCOMYCIN 1,750 MG in SODIUM CHLORIDE 0.9% 500 ML 500 ML IVPB SCH ×2 (02:39→12:53)
[2018-11-13] MEDS: SODIUM CHLORIDE 0.9% 1,000 ML IV SCH ×3 (06:03→21:30)
--- NOTE | 2018-11-13 06:43 | CONS ---
CONSULTATION DATE OF SERVICE: 11/12/2018 REASON FOR CONSULTATION: Right chest wall cellulitis and abscess. HISTORY OF PRESENT ILLNESS: The patient is a 62-year-old female with a past medical history significant for right breast cancer. The patient is status post right mastectomy on 08/17/2018 done at [facility]. The patient subsequently underwent radiation therapy where the patient had completed . The patient did mention that with radiation the patient did have significant larson to the right side of the chest. However, for the last 3 days she is having more pain to the right chest wall area. Pain described to be more of a dull aching to sharp intensity almost 7 to 8 out of 10, no radiation. The patient also had slight area that apparently opened up and drainage of purulent material. Some of them has been culture. The patient was started on vancomycin and Zosyn. Infectious Disease was consulted for further recommendation regarding antibiotic therapy. The patient on presentation to hospital did have a fever of 102.9 degrees Fahrenheit. The patient did have tachycardia on admission with a heart rate of 125 and white count was elevated at 11,000. The patient did have a influenza serology and strep test which were negative. She did have blood cultures obtained which are currently pending as well as wound culture pending as well. REVIEW OF SYSTEMS: CONSTITUTIONAL: Positive for weakness along with the fever. EYES: No complaint. ENT: No complaint. RESPIRATORY: No complaint. CARDIOVASCULAR: No complaint. GENITOURINARY: No complaint. GASTROINTESTINAL: No complaint. MUSCULOSKELETAL: No complaint. INTEGUMENTARY: As per HPI. PSYCHOLOGICAL: No complaint. ENDOCRINE: No complaint. NEUROLOGIC: No complaint. PAST MEDICAL HISTORY: Right breast cancer, status post radiation and surgery, heart murmur and bronchitis. PAST SURGICAL HISTORY: Right mastectomy. SOCIAL HISTORY: Denies smoking, drinking or drug use. FAMILY HISTORY: No pertinent findings noticed. ALLERGIES: Allergies to CEFACLOR. MEDICATIONS: Medications include the patient is currently on Tylenol, Arimidex, Zithromax, Lovenox, vancomycin pharmacy to dose, Zosyn 3.375 grams q.8. PHYSICAL EXAMINATION: On examination, blood pressure 153/85, pulse of 83, temperature of 97.3, T-max is 103 degrees Fahrenheit. She is 95% on room air. General description is a middle-aged female lying in bed in no distress. No tachypnea or accessory muscle of respiration use. HEENT examination shows slight pallor. No scleral icterus. Oral mucous membrane is dry. No pharyngeal erythema or thrush. NECK: Trachea central. No thyromegaly. LUNGS: Unlabored breathing, clear to auscultation anteriorly. No wheeze or crackle. HEART: S1, S2. Regular rate and rhythm. ABDOMEN: Soft, no tenderness. No guarding or rigidity. No organomegaly. EXTREMITIES: No edema of feet. Examination of the right chest wall shows significant swelling and redness. With a minimal pressure purulent material did come out. NEUROLOGIC: The patient is awake, alert, oriented x3. Mood and affect normal. LABS: Hemoglobin is 10.6, white count 11.1. BUN of 17, creatinine 0.57. Liver enzymes slightly elevated. Urine has been negative. Influenza serology was negative. Chest x- ray report negative. DIAGNOSTIC IMPRESSION AND PLAN: Patient admitted to the hospital with sepsis. This patient did have fever of 103 degrees Fahrenheit. The patient did have tachycardia, heart rate 125. Elevated white count source is right chest wall cellulitis with underlying abscess in this patient who did have a history of right mastectomy and significant purulent drainage. We will need to cover for both resistant gram positive as well as gram negative pathogen in view of recent surgery and radiation therapy. PLAN: 1. We will obtain a CT of the chest wall to make sure no evidence of any drainable abscess that may need to be drained surgically. 2. Aly the area of redness of the chest wall. 3. Vancomycin pharmacy to dose target of 15 and Zosyn 3.375 grams q.8. 4. IV fluids. 5. We will follow on her clinical condition as well as cultures to further adjust medication if needed. However in view of this extensive infection, the patient will benefit from a PICC line and outpatient IV antibiotic therapy. Thank you for this consultation. Will follow this patient along with you. MMODL / IJN: [id number] /
[2018-11-13] MEDS: PIPERACILLIN-TAZOBACTAM 3.375 GM in SODIUM CHLORIDE 0.9% 100 ML IVPB SCH ×2 (07:45→17:30)
[2018-11-13] MEDS: ENOXAPARIN 40 MG/0.4 ML SYRINGE SQ SCH (10:44)
--- NOTE | 2018-11-13 11:32 | P.GSCN ---
History of Present Illness Consult date: 11/13/18 Reason for Consult: Right chest wall abscess History of present illness: 62-year-old female underwent right modified radical mastectomy in July. Patient had a 10 cm invasive lobular cancer. Recently completed her radiation therapy 2-3 weeks ago. Did have radiation injury to the skin of the right chest wall with erythema tenderness and apparently some desquamation. She was having fevers at home with increasing pain right chest wall. Came to the ER 2 days ago for further evaluation. Fevers as high as 103. White blood cell count elevated. CAT scan performed yesterday shows a large amount of air beneath the skin flaps right chest. She developed spontaneous purulent drainage from the mastectomy region inferior to her incision site yesterday afternoon. We were consulted for chest wall abscess. Review of Systems The patient denies any acute changes in vision or hearing, no dysphagia or odynophagia, no chest pain or shortness of breath, no dysuria or hematuria, no headache, no runny nose, no rectal bleeding or melena, no unexplained weight loss Past Medical History Past Medical History: Cancer Additional Past Medical History / Comment(s): heart murmur, bronchitis, Rt breast CA History of Any Multi-Drug Resistant Organisms: None Reported Past Surgical History: No Surgical Hx Reported Additional Past Surgical History / Comment(s): Breast Surgery, Past Anesthesia/Blood Transfusion Reactions: No Reported Reaction Past Psychological History: No Psychological Hx Reported Smoking Status: Never smoker Past Alcohol Use History: None Reported Past Drug Use History: None Reported - Past Family History Mother Family Medical History: Cancer Medications and Allergies Home Medications Medication Instructions Recorded Confirmed Type Acetaminophen Tab [Tylenol Tab] 1,000 mg PO Q6HR 11/11/18 11/11/18 History Anastrozole [Arimidex] 1 mg PO DAILY 11/11/18 11/11/18 History Multivitamins, Thera [Multivitamin 1 tab PO DAILY 11/11/18 11/11/18 History (formulary)] Allergies Allergy/AdvReac Type Severity Reaction Status Date / Time cefaclor [From [facility]] Allergy Swelling Verified 11/11/18 11:00 Surgical - Exam Vital Signs Temp Pulse Resp BP Pulse Ox 99.2 F 125 H 20 147/78 96 11/11/18 10:00 11/11/18 10:00 11/11/18 10:00 11/11/18 10:00 11/11/18 10:00 Physical exam: General: Well-developed, well-nourished HEENT: Normocephalic, sclerae nonicteric Abdomen: Nontender, nondistended Right chest wall with mild erythema and mild tenderness, small wound measuring only 1-2 mm draining purulent fluid just lateral to the midclavicular line 2.5 cm inferior to oblique chest wall incision, mastectomy incision without drainage , fluctuance noted Extremities: No edema Neuro: Alert and oriented Results - Labs 11/12/18 18:06 11/11/18 10:35 Abnormal Lab Results - Last 24 Hours (Table) 11/12/18 Range/Units 18:06 RBC 3.67 L (3.80-5.40) m/uL Hgb 10.6 L (11.4-16.0) gm/dL MCHC 30.9 L (31.0-37.0) g/dL Neutrophils # 8.1 H (1.3-7.7) k/uL Microbiology - Last 24 Hours (Table) 11/12/18 00:30 Gram Stain - Preliminary Breast - Right Wound Culture - Preliminary Presumptive Staph aureus 11/11/18 10:35 Blood Culture - Preliminary Blood No Growth after 24 hours 11/12/18 00:30 Anaerobic Culture - Preliminary Breast - Right 11/11/18 10:35 Urine Culture - Final Urine,Voided Assessment and Plan (1) Postoperative wound infection Narrative/Plan: Clinical scenario discussed with the patient. We'll proceed with incision and drainage right chest wall abscess at mastectomy site. Risks of bleeding, infection, poor wound healing, possible need for wound VAC placement discussed. She understands and wishes to proceed. I did place a phone call to Dr. Chung to discuss further with him and left a message for him to call me. Current Visit: Yes Status: Acute Code(s): T81.49XA - INFECTION FOLLOWING A PROCEDURE, OTHER SURGICAL SITE, INIT SNOMED Code(s): 45592879
[2018-11-13 12:47] LABS: Basophils % (A) 0 %; Eosinophils # (A) 0.2 k/uL (0-0.7); Eosinophils % (A) 3 %; HCT 35.7 % (34.0-46.0); HGB 11.8 gm/dL (11.4-16.0); Lymphocytes # (A) 0.9 k/uL (1.0-4.8); Lymphocytes % (A) 13 %; MCH 30.3 pg (25.0-35.0); MCHC 33.1 g/dL (31.0-37.0); MCV 91.4 fL (80.0-100.0); Mean Platelet Volume 6.5; Monocytes # (A) 0.4 k/uL (0-1.0); Monocytes % (A) 5 %; Neutrophils # (A) 5.1 k/uL (1.3-7.7); Neutrophils % (A) 76 %; Platelet Count 347 k/uL (150-450); RBC 3.91 m/uL (3.80-5.40); RDW 12.5 % (11.5-15.5); WBC 6.7 k/uL (3.8-10.6)
[2018-11-13] MEDS ORDERED: IV FLUID CONTINUATION 1,000 ML IV ONE (13:16)
[2018-11-13] MEDS ORDERED: LIDOCAINE 1% INJ 10MG/ML (20 ML MDV) ONE (13:20)
[2018-11-13] MEDS ORDERED: SUCCINYLCHOLINE CHLORIDE 100 MG/5 ML SYR IV ONE (13:20)
[2018-11-13] MEDS ORDERED: PROPOFOL 10 MG/ML 20 ML VIAL IV ONE (13:20)
[2018-11-13] MEDS ORDERED: fentaNYL (PF) 50 MCG/ML 2 ML AMP ONE (13:20)
[2018-11-13] MEDS ORDERED: MIDAZOLAM 2 MG/2 ML VIAL ONE (13:20)
[2018-11-13] MEDS ORDERED: LACTATED RINGERS 1,000 ML IV ONE (13:45)
--- NOTE | 2018-11-13 14:06 | P.OP ---
Date of Procedure: 11/13/18 Procedure(s) Performed: PREOPERATIVE DIAGNOSIS: Right chest wall abscess POSTOPERATIVE DIAGNOSIS: Same PROCEDURE: Incision and drainage right chest wall abscess SURGEON: Carlito EBL: 5 mL ANESTHESIA: Gen. COMPLICATIONS: None OPERATIVE PROCEDURE: Patient placed in the operative table in the supine position. The patient was placed under general anesthesia. The right chest wall was prepped and draped in usual sterile fashion. Using a hemostat I was able to inspect the size of the subcutaneous abscess cavity through the wound present inferior to the mastectomy incision site. The tracking did head up towards the incision site itself. The mastectomy incision was then re-incised for a distance of 6 cm. The saphenous abscess cavity was encountered. This was irrigated. A fibrinous purulent exudate was excised. The wound was then packed with saline moistened Kristine gauze. A sterile dressing was applied. DISPOSITION: Stable to recovery room
[2018-11-13] MEDS: MULTIVITAMINS, THERA 1 EACH TAB PO SCH (15:33)
[2018-11-13] MEDS: AZITHROMYCIN 500 MG TAB PO SCH (15:33)
[2018-11-13] MEDS: ANASTROZOLE 1 MG TAB PO SCH (15:34)
[2018-11-13] MEDS: ACETAMINOPHEN TAB 325 MG TAB PO PRN (20:15)
[2018-11-14] MEDS: VANCOMYCIN 1,750 MG in SODIUM CHLORIDE 0.9% 500 ML 500 ML IVPB SCH ×2 (00:33→12:08)
--- NOTE | 2018-11-14 01:08 | PN ---
PROGRESS NOTE DATE OF SERVICE: 11/13/2018. PRESENTING COMPLAINT: Fever. INTERVAL HISTORY: This patient presented with acute cellulitis abscess at the right mastectomy site with breakdown of skin. Did go for I and D earlier today. Some abscess was drained. REVIEW OF SYSTEMS: Done for constitutional, cardiovascular, GI, pulmonary; relevant findings as above. CURRENT MEDICATIONS: Reviewed that include IV vancomycin and Zosyn. PHYSICAL EXAMINATION: On examination, afebrile, pulse 100, respiratory rate 16, blood pressure 130/74, pulse ox 94 percent room air. GENERAL: Sitting up, comfortable. EYES: Pupils equal. Conjunctivae normal. NECK: JVD not raised. Mass not palpable. Respiratory effort normal. LUNGS: Clear. CARDIOVASCULAR: 1st and 2nd heart sounds normal. No edema. ABDOMEN: Soft, nontender. Liver and spleen not palpable. Right-sided chest wall dressing over the I and D site. INVESTIGATIONS: White count 6.7, hemoglobin 11.8. Stool is negative for C diff. ASSESSMENT: 1. Right anterior chest wall acute abscess and cellulitis, status post incision and drainage today. 2. Right mastectomy for breast cancer. Patient on Arimidex. 3. Obesity, BMI 34.6. 4. Primary osteoarthritis. 5. Chronic insomnia , idiopathic. 6. Radiation dermatitis on the right side of the chest wall. PLAN: Continue with current antibiotics. Cultures growing Staph aureus. Care was discussed with the patient and . Follow up with KIM and Dr. Esteban. EILEEN / REUBEN: [id number] /
--- NOTE | 2018-11-14 06:54 | PN ---
PROGRESS NOTE DATE OF SERVICE: 11/13/2018. REASON FOR FOLLOWUP: Right chest wall abscess and cellulitis. INTERVAL HISTORY: The patient currently denies having any fever or chills. Pain to the right chest wall has slightly decreased in intensity. Did have some urine drainage. Denies having any shortness of breath, cough. No abdominal pain. No diarrhea. However, the patient is complaining of diarrhea with multiple loose stools today. PHYSICAL EXAMINATION: Blood pressure 150/85 with a pulse of 80, temperature 97.4. She is 96% on room air. General description is a middle-aged female lying in bed in no distress. Respiratory system: Unlabored breathing. Clear to auscultation anteriorly. Heart S1, S2. Regular rate and rhythm. ABDOMEN: Soft, no tenderness. The right chest wall swelling, redness minimally decreased with minimal drainage. LABS: The wound culture now showing Staph aureus. White count 6.7. Blood culture remains negative so far. DIAGNOSTIC IMPRESSION AND PLAN: 1. Patient with right chest wall abscess. 2. Abscess and cellulitis. The patient has been taken to OR status post debridement of the area. The cultures were requested. Initial cultures showed Staph aureus. The patient has developed diarrhea more likely antibiotic associated. We will discontinue the Zosyn as no gram negative has been grown. The patient will continue on vancomycin while watching the kidney function closely. She will likely need a PICC line for outpatient IV antibiotic therapy. depend upon the clinical response. Continue supportive care. MMODL / IJN: [id number] /
[2018-11-14] MEDS: MULTIVITAMINS, THERA 1 EACH TAB PO SCH (08:16)
[2018-11-14] MEDS: ANASTROZOLE 1 MG TAB PO SCH (08:16)
[2018-11-14] MEDS: ENOXAPARIN 40 MG/0.4 ML SYRINGE SQ SCH (08:16)
[2018-11-14] MEDS: SODIUM CHLORIDE 0.9% 1,000 ML IV SCH ×2 (11:41→20:53)
[2018-11-14] MEDS ORDERED: VANCOMYCIN TROUGH DUE 1 EACH MISC MISCELLANE ONE (12:00)
--- NOTE | 2018-11-14 14:26 | P.PN ---
Subjective Progress Note Date: 11/14/18 Principal diagnosis: Right chest wall abscess Patient feels better today. Her pain is improved. She is afebrile. Objective - Vital Signs Vital signs: Vital Signs Temp 97.9 F 11/14/18 07:00 Pulse 78 11/14/18 07:00 Resp 18 11/14/18 07:00 BP 149/85 11/14/18 07:00 Pulse Ox 99 11/14/18 07:00 Intake & Output 11/13/18 11/14/18 11/14/18 18:59 06:59 18:59 Intake Total 009 680 7064 Output Total 5 Balance 096 234 5072 Weight 85.729 kg Intake: IV 250 1300 Sodium Chloride 0.9% 1, 800 000 ml @ 100 mls/hr IV . Q10H [facility] Rx#:[id number] Vancomycin 1,750 mg In 500 Sodium Chloride 0.9% 500 ml 500 ml @ 167 mls/hr IVPB Q12H [facility] Rx#: [id number] Oral 400 750 Output: Estimated Blood Loss 5 Other: Voiding Method Toilet Toilet # Voids 3 2 # Bowel Movements 1 - Exam Right chest wall wound site clean with no active drainage, minimal tenderness - Labs CBC & Chem 7: 11/13/18 11:45 11/14/18 11:07 Labs: Microbiology - Last 24 Hours (Table) 11/12/18 00:30 Anaerobic Culture - Preliminary Breast - Right 11/12/18 00:30 Gram Stain - Final Breast - Right Wound Culture - Final Staphylococcus aureus 11/11/18 10:35 Blood Culture - Preliminary Blood No Growth after 72 hours 11/11/18 12:45 Group A Strep Throat Culture - Final Throat Assessment and Plan (1) Postoperative wound infection Narrative/Plan: Begin wound VAC therapy at this time. Continue antibiotics per infectious disease. Current Visit: Yes Status: Acute Code(s): T81.49XA - INFECTION FOLLOWING A PROCEDURE, OTHER SURGICAL SITE, INIT SNOMED Code(s): 20055201
[2018-11-14] MEDS: VANCOMYCIN 1,500 MG in SODIUM CHLORIDE 0.9% 250 ML IVPB SCH (23:51)
--- NOTE | 2018-11-15 06:31 | PN ---
PROGRESS NOTE DATE OF SERVICE: 11/14/2018 PRESENTING COMPLAINT: Right chest wall cellulitis, abscess. INTERVAL HISTORY: This is a patient with right mastectomy and radiation injury to the right chest wall, presented with acute cellulitis, abscess, status post I and D. Has got a dressing over the same. Fever is better. Cultures are pending. Otherwise, tolerating a diet. is present. REVIEW OF SYSTEMS: Done for constitutional, cardiovascular, GI, pulmonary, dermatological; relevant findings as above. CURRENT MEDICATIONS: Current medications are reviewed that include IV vancomycin. PHYSICAL EXAMINATION: On examination, temperature 98.4 pulse 87, respirations 16, blood pressure 156/77, pulse ox 98% on room air. GENERAL APPEARANCE: Sitting up, awake. EYES: Pupils equal. Conjunctivae normal. NECK: JVD not raised. Mass not palpable. RESPIRATORY: Effort . Lungs are clear. CARDIOVASCULAR: First and second sounds normal. No edema. ABDOMEN: Soft, nontender. Liver and spleen not palpable. Chest wall dressing over the incision site. INVESTIGATIONS: Vancomycin trough is noted. Culture is growing MSSA. ASSESSMENT: 1. Right anterior chest wall acute abscess and cellulitis, status post I and D growing MSSA. 2. Right mastectomy for breast cancer. The patient is on Arimidex. 3. Obesity, body mass index 34.6. 4. Primary osteoarthritis. 5. Chronic insomnia, idiopathic. 6. Radiation dermatitis on the right side of the chest wall. PLAN: Discussed with Dr. Esteban from General Surgery and Dr. Menjivar from ID. They are considering putting a wound VAC. Care was discussed with the patient. Antibiotics will be finalized by Dr. Menjivar. In meantime just continue the current antibiotic. MMODL / IJN: [id number] /
--- NOTE | 2018-11-15 07:24 | PN ---
PROGRESS NOTE DATE OF SERVICE: 11/14/2018 REASON FOR FOLLOWUP: Right chest wall abscess and cellulitis. INTERVAL HISTORY: The patient is afebrile. She is breathing comfortably. Pain to the right chest wall has decreased in intensity. No nausea or vomiting. No abdominal pain and no diarrhea. PHYSICAL EXAMINATION: Blood pressure 156/77 with a pulse of 87, temperature 98.4, she is 98% on room air. General description is a middle-aged female lying in bed in no distress. Respiratory system: Unlabored breathing, clear to auscultation anteriorly. Heart: S1, S2. Regular rate and rhythm. On examination of the right chest wall, the wound looks clean after drainage of the abscess. Surrounding redness decreased. No foul smelling drainage. Abdomen: Soft, no tenderness. Extremities: No edema of the feet. LABS: Hemoglobin is 11.8 with white count 6.7. Wound culture finalized with Staphylococcus aureus, MSSA. DIAGNOSTIC IMPRESSION AND PLAN: Patient with MSSA right chest wall abscess in a patient who is status post mastectomy for underlying breast cancer. Unfortunately, the patient does have an allergy to cefaclor. Hence, we will keep the patient on the IV vancomycin at this time. We will discuss with the case consultant tomorrow to see if either IV daptomycin or Vanco could be arranged for the patient for the next 10 days, local wound care with wound VAC. All of their questions and concerns were answered. Once antibiotics and wound VAC arranged, she could go home from ID standpoint. Continue supportive care. MMODL / IJN: [id number] /
[2018-11-15] MEDS: SODIUM CHLORIDE 0.9% 1,000 ML IV SCH ×2 (07:45→17:27)
[2018-11-15] MEDS: MULTIVITAMINS, THERA 1 EACH TAB PO SCH (07:47)
[2018-11-15] MEDS: ENOXAPARIN 40 MG/0.4 ML SYRINGE SQ SCH (07:47)
[2018-11-15] MEDS: IBUPROFEN 600 MG TAB PO PRN (07:47)
[2018-11-15] MEDS: ANASTROZOLE 1 MG TAB PO SCH (07:48)
[2018-11-15 11:02] LABS: ALT 78 U/L (9-52); AST 59 U/L (14-36); Albumin 3.4 g/dL (3.5-5.0); Alkaline Phosphatase 207 U/L (38-126); Anion Gap 9 mmol/L; Bilirubin, Delta 0.1 mg/dL (0.0-0.2); Bilirubin,Unconjugated 0.1 mg/dL (0.0-1.1); Blood Urea Nitrogen 11 mg/dL (7-17); Calcium 9.3 mg/dL (8.4-10.2); Carbon Dioxide 25 mmol/L (22-30); Chloride 107 mmol/L (98-107); Glucose 158 mg/dL (74-99); Potassium 3.9 mmol/L (3.5-5.1); Sodium 141 mmol/L (137-145); Total Bilirubin 0.2 mg/dL (0.2-1.3); Total Protein 6.1 g/dL (6.3-8.2)
[2018-11-15] MEDS: VANCOMYCIN 1,500 MG in SODIUM CHLORIDE 0.9% 250 ML IVPB SCH (11:28)
--- NOTE | 2018-11-15 12:55 | P.PN ---
Subjective On-call hospitalist covering for Dr. Smith starting 11/15/2018 through 2018 This is a pleasant 62 years old female with past medical history of right breast cancer status post surgical removal, who presents because of infected surgical wound on the right chest wall. She's been followed up by surgery and infectious disease. She supposed to get wound VAC yesterday but that was held because she was bleeding, discussed with surgical treatment today possible replacement of wound VAC again. Once culture is growing staph aureus which is susceptible to oxacillin. Antibiotics is been recommended by infectious disease and currently she is on daptomycin. Plan for possible midline/PICC line with final recommendation as per ID team. Patient also reports some loose stool which is improving with no abdominal pain or nausea vomiting and she is tolerating diet well. No more fevers since 11/11/2018. Leukocytosis is improved. BMP was unremarkable. Liver enzymes are slightly trending down. Objective - Vital Signs Vital signs: Vital Signs Temp 97.8 F 11/15/18 07:18 Pulse 68 11/15/18 07:18 Resp 16 11/15/18 07:18 BP 167/84 11/15/18 07:18 Pulse Ox 95 11/15/18 07:18 Intake & Output 11/14/18 11/15/18 11/15/18 18:59 06:59 18:59 Intake Total 1300 Balance 1300 Intake: IV 1300 Sodium Chloride 0.9% 1, 800 000 ml @ 100 mls/hr IV . Q10H [facility] Rx#:[id number] Vancomycin 1,750 mg In 500 Sodium Chloride 0.9% 500 ml 500 ml @ 167 mls/hr IVPB Q12H [facility] Rx#: [id number] Other: # Voids 2 - Exam GENERAL: The patient is alert and oriented x3, not in any acute distress. Well developed, well nourished. HEENT: Pupils are round and equally reacting to light. EOMI. No scleral icterus. No conjunctival pallor. Normocephalic, atraumatic. No pharyngeal erythema. No thyromegaly. CARDIOVASCULAR: S1 and S2 present. No murmurs, rubs, or gallops. -PULMONARY: Chest is clear to auscultation, no wheezing or crackles. Right chest wall wound, healing with minimal surrounding cellulitis. Has soft wick soaked with blood. However no active bleeding ABDOMEN: Soft, nontender, nondistended, normoactive bowel sounds. No palpable organomegaly. MUSCULOSKELETAL: No joint swelling or deformity. EXTREMITIES: No cyanosis, clubbing, or pedal edema. NEUROLOGICAL: Gross neurological examination did not reveal any focal deficits. SKIN: No rashes. - Labs CBC & Chem 7: 11/13/18 11:45 11/15/18 09:30 Labs: Abnormal Lab Results - Last 24 Hours (Table) 11/15/18 Range/Units 09:30 Glucose 158 H (74-99) mg/dL AST 59 H (14-36) U/L ALT 78 H (9-52) U/L Alkaline Phosphatase 207 H (38-126) U/L Total Protein 6.1 L (6.3-8.2) g/dL Albumin 3.4 L (3.5-5.0) g/dL Microbiology - Last 24 Hours (Table) 11/12/18 00:30 Anaerobic Culture - Preliminary Breast - Right 11/12/18 00:30 Gram Stain - Final Breast - Right Wound Culture - Final Staphylococcus aureus 11/11/18 10:35 Blood Culture - Preliminary Blood No Growth after 72 hours Assessment and Plan Assessment: Chest wall wound infection, abscess status post debridement and I&D per surgical team. Cellulitis secondary to above. History of right breast cancer status post surgical removal Elevated liver enzymes, mild. Plan: This is a pleasant 62 years old female who presents with left chest wall abscess and infection. Surgical infectious team are following the patient and antibiotics as per. Wound is growing staph aureus. Patient might need PICC/ midline as per ID team evaluation. Labs and medication were reviewed.. Continue same treatment. Continue with symptomatic treatment. Resume home medication. Monitor lytes and vitals. DVT and GI prophylaxis. Further recommendations of the clinical course of the patient DVT prophylaxis: Subcutaneous Lovenox GI Prophylaxis: Pepcid Prognosis is guarded
[2018-11-15] MEDS: DAPTOmycin 500 MG in SODIUM CHLORIDE 0.9% 50 ML IVPB SCH (12:59)
--- NOTE | 2018-11-15 15:34 | P.PN ---
Subjective Progress Note Date: 11/15/18 Principal diagnosis: fever Pt seen today in f/u. She was being treated for pneumonia and now she has a MSSA right breast infection. She had SQ abscess inferior to the mastectomy incision site, which Dr. Esteban performed I&D on 11/13. Wound vac was placed today. ID managing wound vac and IV abx. Pt states no fevers, chills overnight. She is tolerating oral intake, no SOB, productive cough, abd pain, the wound vac site is uncomfortable but pt denies unrealistic or severe pain, no acute changes in bowel or bladder habits, she is fully ambulatory. Objective - Vital Signs Vital signs: Vital Signs Temp 97.9 F 11/15/18 14:05 Pulse 79 11/15/18 14:05 Resp 16 11/15/18 14:05 BP 139/80 11/15/18 14:05 Pulse Ox 97 11/15/18 14:05 Intake & Output 11/14/18 11/15/18 11/15/18 18:59 06:59 18:59 Intake Total 1300 950 Balance 1300 950 Intake: IV 1300 900 Sodium Chloride 0.9% 1, 800 400 000 ml @ 50 mls/hr IV . Q20H [facility] Rx#:[id number] Vancomycin 1,750 mg In 500 500 Sodium Chloride 0.9% 500 ml 500 ml @ 167 mls/hr IVPB Q12H [facility] Rx#: [id number] Intake, IV Titration 50 Amount DAPTOmycin 500 mg In 50 Sodium Chloride 0.9% 50 ml @ 100 mls/hr IVPB Q24H [facility] Rx#:[id number] Other: # Voids 2 - Constitutional General appearance: Present: average body habitus, cooperative, no acute distress - EENT Eyes: Present: anicteric sclerae, EOMI, normal appearance ENT: Present: hearing grossly normal, normal oropharynx - Neck Neck: Present: normal ROM. Absent: lymphadenopathy - Respiratory Respiratory: bilateral: CTA - Cardiovascular Heart sounds: normal: S1, S2 Abnormal Heart Sounds: Absent: systolic murmur, diastolic murmur, rub, S3 Gallop , S4 Gallop, click, other - Peripheral edema leg Peripheral Edema: bilateral: None - Gastrointestinal General gastrointestinal: Present: normal bowel sounds, soft. Absent: absent bowel sounds, decreased bowel sounds, distended, hepatomegaly, hyperactive bowel sounds, organomegaly, rigid, scaphoid, splenomegaly, tenderness, umbilical hernia, ventral hernia - Integumentary Integumentary Comment(s): right chest wound vac dressing in place, just put on this AM, did not disturb, radiation changes to skin noted. - Neurologic Neurologic: Present: CNII-XII intact - Musculoskeletal Musculoskeletal: Present: strength equal bilaterally - Psychiatric Psychiatric: Present: A&O x's 3, appropriate affect, intact judgment & insight - Labs CBC & Chem 7: 11/13/18 11:45 11/15/18 09:30 Labs: Abnormal Lab Results - Last 24 Hours (Table) 11/15/18 Range/Units 09:30 Glucose 158 H (74-99) mg/dL AST 59 H (14-36) U/L ALT 78 H (9-52) U/L Alkaline Phosphatase 207 H (38-126) U/L Total Protein 6.1 L (6.3-8.2) g/dL Albumin 3.4 L (3.5-5.0) g/dL Microbiology - Last 24 Hours (Table) 11/11/18 10:35 Blood Culture - Preliminary Blood No Growth after 96 hours 11/12/18 00:30 Anaerobic Culture - Preliminary Breast - Right 11/12/18 00:30 Gram Stain - Final Breast - Right Wound Culture - Final Staphylococcus aureus Assessment and Plan (1) Abscess Narrative/Plan: S/P I&D with surgery. Wound vac in place, plans for longer term IV abx for MSSA in wound culture per ID. Adjuvant chemo will be delayed until adequate wound healing. F/U with Dr. Kumar prior to starting chemo Notes will be sent to pt breast surgeon and Rad Onc. Current Visit: Yes Status: Acute Priority: High Code(s): L02.91 - CUTANEOUS ABSCESS, UNSPECIFIED SNOMED Code(s): 743545679 (2) Breast cancer Narrative/Plan: Cont arimidex for now. Adjuvant chemo after wound healing. F/U with Dr. Kumar scheduled Current Visit: Yes Status: Acute Priority: High Code(s): C50.919 - MALIGNANT NEOPLASM OF UNSP SITE OF UNSPECIFIED FEMALE BREAST SNOMED Code(s): 789410640
--- NOTE | 2018-11-15 16:16 | PN ---
PROGRESS NOTE DATE OF SERVICE: 11/15/2018. REASON FOR FOLLOWUP: 1. Right chest wall abscess and cellulitis with MSSA. 2. CEPHALOSPORIN ALLERGY. INTERVAL HISTORY: The patient is currently afebrile. She is breathing comfortably. The patient denies having any chest pain or shortness of breath, cough. No abdominal pain. No diarrhea. PHYSICAL EXAMINATION: Blood pressure is 139/80 with a pulse of 79, temperature 97.9. She is 97% on room air. General description is a middle-aged female up in the bed in no distress. RESPIRATORY SYSTEM: Unlabored breathing. Clear to auscultation anteriorly. HEART: S1, S2. Regular rate and rhythm. ABDOMEN: Soft. No tenderness. LABS: BUN of 11, creatinine 0.59. DIAGNOSTIC IMPRESSION AND PLAN: Patient with a right chest wall abscess, status post drainage. Culture has been positive for MSSA. Unfortunately the patient has a CEPHALOSPORIN ALLERGY, and the patient cannot be transitioned to cefazolin or Rocephin. She did well on the vancomycin; however, the patient prefers a once-a-day antibiotic for outpatient discharge. She will be transitioned to daptomycin 500 mg daily for 10 days, for which a midline will be placed. Local wound care with a wound V.A.C., to be changed Tuesday, Tuesday and Tuesday. Once antibiotic should be able to go home from ID standpoint. Continue with supportive care. MMODL / IJN: [id number] /
[2018-11-15] MEDS: HYDROcodone/APAP 5-325MG 1 EACH TAB PO PRN ×2 (18:51→23:03)
[2018-11-15] MEDS: FAMOTIDINE 20 MG/2 ML VIAL IV SCH (20:12)
--- NOTE | 2018-11-15 20:14 | P.PN ---
Subjective Progress Note Date: 11/15/18 Principal diagnosis: Right chest wall abscess Patient doing well today. Wound VAC was placed earlier. Minimal pain. No fevers. Non-MRSA staph noted. Objective - Vital Signs Vital signs: Vital Signs Temp 97.9 F 11/15/18 14:05 Pulse 79 11/15/18 14:05 Resp 16 11/15/18 14:05 BP 139/80 11/15/18 14:05 Pulse Ox 97 11/15/18 14:05 Intake & Output 11/15/18 11/15/18 11/16/18 06:59 18:59 06:59 Intake Total 950 Balance 950 Intake: IV 900 Sodium Chloride 0.9% 1, 400 000 ml @ 50 mls/hr IV . Q20H [facility] Rx#:[id number] Vancomycin 1,750 mg In 500 Sodium Chloride 0.9% 500 ml 500 ml @ 167 mls/hr IVPB Q12H [facility] Rx#: [id number] Intake, IV Titration 50 Amount DAPTOmycin 500 mg In 50 Sodium Chloride 0.9% 50 ml @ 100 mls/hr IVPB Q24H [facility] Rx#:[id number] Other: # Voids 2 - Exam Right chest wall with wound VAC in place - Labs CBC & Chem 7: 11/13/18 11:45 11/15/18 09:30 Labs: Abnormal Lab Results - Last 24 Hours (Table) 11/15/18 Range/Units 09:30 Glucose 158 H (74-99) mg/dL AST 59 H (14-36) U/L ALT 78 H (9-52) U/L Alkaline Phosphatase 207 H (38-126) U/L Total Protein 6.1 L (6.3-8.2) g/dL Albumin 3.4 L (3.5-5.0) g/dL Microbiology - Last 24 Hours (Table) 11/11/18 10:35 Blood Culture - Preliminary Blood No Growth after 96 hours Assessment and Plan (1) Postoperative wound infection Narrative/Plan: Continue antibiotics. Continue wound VAC therapy. Post discharge follow-up with Dr. Chung, Dr. Santoro, Dr. Kumar, Dr. Menjivar. Patient can follow up with me as needed post discharge. Current Visit: Yes Status: Acute Code(s): T81.49XA - INFECTION FOLLOWING A PROCEDURE, OTHER SURGICAL SITE, INIT SNOMED Code(s): 94430820
[2018-11-16] MEDS: MULTIVITAMINS, THERA 1 EACH TAB PO SCH (07:46)
[2018-11-16] MEDS: ENOXAPARIN 40 MG/0.4 ML SYRINGE SQ SCH (07:47)
[2018-11-16] MEDS: ANASTROZOLE 1 MG TAB PO SCH (07:47)
[2018-11-16] MEDS: FAMOTIDINE 20 MG/2 ML VIAL IV SCH (07:48)
[2018-11-16 12:13] LABS: Albumin 3.6 g/dL (3.5-5.0); Bilirubin,Unconjugated 0.2 mg/dL (0.0-1.1); Total Bilirubin 0.2 mg/dL (0.2-1.3); Total Protein 6.5 g/dL (6.3-8.2)
[2018-11-16] MEDS: DAPTOmycin 500 MG in SODIUM CHLORIDE 0.9% 50 ML IVPB SCH (13:17)
[2018-11-16 14:56] VITALS: BP 143/86; PULSE 101; RESP 16; TEMP 97.5
--- NOTE | 2018-11-16 15:44 | PN ---
PROGRESS NOTE DATE OF SERVICE: 11/16/2018. REASON FOR FOLLOWUP: Right chest wall abscess, cellulitis, MSSA. INTERVAL HISTORY: The patient is currently afebrile. She is feeling better, breathing comfortably. Pain to the right chest wall is currently controlled. She has been tolerating her wound V.A.C. No chest pain. No shortness of breath. No cough. No abdominal pain. No diarrhea. PHYSICAL EXAMINATION: Blood pressure 143/56, pulse of 101, temperature 97.5. She is 96% on room air. General description is a middle-aged female lying in bed in no distress. RESPIRATORY SYSTEM: Unlabored breathing with decreased breath sounds at the base. No wheeze. HEART: S1, S2. Regular rate and rhythm. ABDOMEN: Soft. No tenderness. LABS: BUN of 11, creatinine 0.59. DIAGNOSTIC IMPRESSION AND PLAN: Patient with a methicillin-susceptible Staphylococcus aeruginosa right chest wall abscess, status post drainage. Culture with MSSA. Unfortunately the patient does have a CEPHALOSPORIN ALLERGY. Currently on daptomycin, to continue for about a week to 10 days. Local wound care with wound V.A.C. and close outpatient followup. Continue with supportive care. MMODL / IJN: [id number] /
[2018-11-16] MEDS: SODIUM CHLORIDE 0.9% 1,000 ML IV SCH (15:51)
[2018-11-16] MEDS ORDERED: FAMOTIDINE 20 MG TAB PO SCH (21:00)
--- NOTE | 2018-11-17 10:47 | P.PN ---
Subjective Progress Note Date: 11/16/18 Principal diagnosis: post operative infection breast no acute complaints, discharge planning today. Anxious about having to follow- up with GI for liver. Objective - Vital Signs Vital signs: Vital Signs Temp 98.1 F 11/16/18 07:00 Pulse 81 11/16/18 07:00 Resp 18 11/16/18 07:36 BP 156/88 11/16/18 07:00 Pulse Ox 96 11/16/18 09:36 Intake & Output 11/15/18 11/16/18 11/16/18 18:59 06:59 18:59 Intake Total 950 750 Balance 950 750 Intake: IV 900 Sodium Chloride 0.9% 1, 400 000 ml @ 50 mls/hr IV . Q20H [facility] Rx#:[id number] Vancomycin 1,750 mg In 500 Sodium Chloride 0.9% 500 ml 500 ml @ 167 mls/hr IVPB Q12H [facility] Rx#: [id number] Intake, IV Titration 50 Amount DAPTOmycin 500 mg In 50 Sodium Chloride 0.9% 50 ml @ 100 mls/hr IVPB Q24H [facility] Rx#:[id number] Oral 750 Other: Voiding Method Toilet Toilet # Voids 2 - Exam - Constitutional General appearance: Present: average body habitus, cooperative, no acute distress - EENT Eyes: Present: anicteric sclerae, EOMI, normal appearance ENT: Present: hearing grossly normal, normal oropharynx - Neck Neck: Present: normal ROM. Absent: lymphadenopathy - Respiratory Respiratory: bilateral: CTA - Cardiovascular Heart sounds: normal: S1, S2 Abnormal Heart Sounds: Absent: systolic murmur, diastolic murmur, rub, S3 Gallop , S4 Gallop, click, other - Peripheral edema leg Peripheral Edema: bilateral: None - Gastrointestinal General gastrointestinal: Present: normal bowel sounds, soft. Absent: absent bowel sounds, decreased bowel sounds, distended, hepatomegaly, hyperactive bowel sounds, organomegaly, rigid, scaphoid, splenomegaly, tenderness, umbilical hernia, ventral hernia - Integumentary Integumentary Comment(s): right chest wound vac dressing in place, just put on this AM, did not disturb, radiation changes to skin noted. - Neurologic Neurologic: Present: CNII-XII intact - Musculoskeletal Musculoskeletal: Present: strength equal bilaterally - Psychiatric Psychiatric: Present: A&O x's 3, appropriate affect, intact judgment & insight - Labs CBC & Chem 7: 11/13/18 11:45 11/15/18 09:30 Labs: Abnormal Lab Results - Last 24 Hours (Table) 11/16/18 Range/Units 11:39 AST 71 H (14-36) U/L ALT 97 H (9-52) U/L Alkaline Phosphatase 192 H (38-126) U/L Microbiology - Last 24 Hours (Table) 11/11/18 10:35 Blood Culture - Preliminary Blood No Growth after 120 hours 11/12/18 00:30 Anaerobic Culture - Final Breast - Right Assessment and Plan Plan: (1) Abscess Narrative/Plan: S/P I&D with surgery. Wound vac in place, plans for longer term IV abx for MSSA in wound culture per ID. Adjuvant chemo will be delayed until adequate wound healing. F/U with Dr. Kumar prior to starting chemo Notes will be sent to pt breast surgeon and Rad Onc. Current Visit: Yes Status: Acute Priority: High Code(s): L02.91 - CUTANEOUS ABSCESS, UNSPECIFIED SNOMED Code(s): 843392647 (2) Breast cancer Narrative/Plan: Cont arimidex for now. Adjuvant chemo after wound healing. F/U with Dr. Kumar scheduled Current Visit: Yes Status: Acute Priority: High Code(s): C50.919 - MALIGNANT NEOPLASM OF UNSP SITE OF UNSPECIFIED FEMALE BREAST SNOMED Code(s): 328610552 Plan: Will be seen in office in next two weeks to review plan for adjuvant chemotherapy, wiol reassess liver function at that time and further work-up if necessary.
== END 2018-11-16 17:42 | disposition home health service (06) | DRG 856 ==
LOC: EC 09:56 → 4MS4W 13:35 → OBSVTOIN 11-13 12:02
PROVIDERS: ADMIT Hospitalist; ATTEND Hospitalist
PROC: 0J960ZZ Drainage of Chest Subcutaneous Tissue and Fascia, Open Approach (ICD-10-PCS; principal; 2018-11-13 11:12)
DX: T81.41XA Infection following a procedure, superficial incisional surgical site, initial encounter (principal); J18.9 Pneumonia, unspecified organism; L02.213 Cutaneous abscess of chest wall; L03.313 Cellulitis of chest wall; C50.911 Malignant neoplasm of unspecified site of right female breast; E66.9 Obesity, unspecified; F51.04 Psychophysiologic insomnia; L59.8 Other specified disorders of the skin and subcutaneous tissue related to radiation; M19.91 Primary osteoarthritis, unspecified site; Y84.2 Radiological procedure and radiotherapy as the cause of abnormal reaction of the patient, or of later complication, without mention of misadventure at the time of the procedure; Y83.8 Other surgical procedures as the cause of abnormal reaction of the patient, or of later complication, without mention of misadventure at the time of the procedure; Z68.34 Body mass index [BMI] 34.0-34.9, adult; Z79.811 Long term (current) use of aromatase inhibitors; Z85.3 Personal history of malignant neoplasm of breast; Z88.1 Allergy status to other antibiotic agents; Z90.11 Acquired absence of right breast and nipple; Z92.3 Personal history of irradiation; B95.61 Methicillin susceptible Staphylococcus aureus infection as the cause of diseases classified elsewhere
CPT/HCPCS: 36415; 36569; 71046; 71250; 76937; 80048; 80053; 80076; 80202; 81001; 82565; 83605; 85025; 85610; 85730; 87040; 87070; 87075; 87077; 87081; 87086; 87186; 87205; 87324; 87430; 87502; 93005; 94760; 96365; 96366; 96368; 99285

== ENCOUNTER → 2019-02-26 | Outpatient (CLI) | payer OTHER ==
--- NOTE | 2019-02-26 13:21 | US ---
EXAMINATION TYPE: US venous doppler duplex UE LT DATE OF EXAM: 02/26/2019 COMPARISON: NONE CLINICAL HISTORY: R22.32 Swelling. SIDE PERFORMED: Left Grayscale, color doppler, spectral doppler imaging performed of the deep veins of the upper extremiti es. There is normal flow, compressibility and vascular waveforms. Left Arm: Visualized portions of left internal jugular vein, the left subclavian and axillary veins, the left brachial veins, cephalic vein, basilic vein, radial veins and ulnar veins all compress shasta lly and show no abnormal luminal echoes. Venous waveforms are normal. IMPRESSION: No evident deep venous thrombosis in the left upper extremity.
== END | disposition home or self-care (01) ==
LOC: RADUSWWP 10:33
PROVIDERS: ATTEND Registered Nurse Oncology
DX: R22.32 Localized swelling, mass and lump, left upper limb (principal)

== ENCOUNTER → 2019-03-03 | Outpatient (CLI) | payer OTHER ==
--- NOTE | 2019-03-05 19:21 | PE ---
EXAMINATION TYPE: PET CT fusion skull to thigh DATE OF EXAM: 03/03/2019 COMPARISON: Chest CT November 12, 2018. HISTORY: Right-sided breast cancer had mastectomy August 07, 2018 completed radiation treatment De 2017 and completed chemotherapy February 12, 2019. TECHNIQUE: Following the intravenous administration of 11.86 mCi of F-18 FDG, whole body images are performed from the skull base to the midthigh. Images are reviewed on the computer in the coronal, a xial, and sagittal planes. Reconstructed rotating images are created on independent workstation and reviewed on the computer. A noncontrast CT is performed in conjunction with the PET scan. SCAN: Subsequent Scan FINDINGS: SKULL BASE AND NECK: No areas of suspicious hypermetabolic uptake are present. CHEST, MEDIASTINUM, AND HILAR REGION: Right-sided mastectomy are seen. Mild diffuse uptake is presume d postsurgical. No suspicious hypermetabolic uptake identified in the right breast or axillary region . No suspicious hypermetabolic uptake is seen in the thorax. Scarring medial left upper breast is sta ble axial image 69 without hypermetabolic uptake. ABDOMEN AND PELVIS: No suspicious hypermetabolic uptake. OSSEOUS STRUCTURES: No suspicious hypermetabolic uptake. OTHER CT: In the posterior scalp midline of the neck there is 3.8 cm oval low dense lesion felt to re flect sebaceous cysts or other benign etiology axial image 36. There is mild calcified plaque in the left carotid bulb. Some new mild skin thickening in the left breast is presumed posttreatment change. Some anterior righ t lung groundglass opacity and consolidation is presumed posttreatment change. Scattered pelvic phleboliths are seen. There is heterogeneous anteverted uterus with lobulation sugge sting underlying fibroids, correlate clinically. There is some facet arthropathy in the lower lumbar spine. There is mild calcified plaque of aorta ex tending into branch vessels. IMPRESSION: Successful treatment change of right breast neoplasm. No areas of suspicious mass or hype rmetabolic uptake to suggest residual or metastatic active malignancy are identified.
== END | disposition home or self-care (01) ==
LOC: RADPETMAIN 10:00
PROVIDERS: ATTEND Internal Medicine Hematology & Oncology
DX: C50.111 Malignant neoplasm of central portion of right female breast (principal)
CPT/HCPCS: 78815; A9552

== ENCOUNTER → 2019-04-23 | Outpatient (CLI) | payer OTHER ==
--- NOTE | 2019-04-24 11:05 | MM ---
Reason for exam: additional evaluation requested from prior study. Last mammogram was performed 2 years and 1 month ago. History: Patient is postmenopausal and has history of breast cancer at age 62. Family history of breast cancer in mother at age 67 and breast cancer in aunt. Mastectomy of the right breast, July 2018. Benign excisional biopsy of the left breast, December 30, 1997. Chemotherapy. Radiation therapy of the right breast. Taking antineoplastic beginning at age 62. Physical Findings: Nurse did not find any significant physical abnormalities on exam. MG 3D Diag Mammo W/Cad LT CC and MLO view(s) were taken of the left breast. Prior study comparison: March 21, 2017, bilateral MG 3d screening mammo w/cad. February 12, 2013, bilateral digital screening mammo w/CAD. The breast tissue is heterogeneously dense. This may lower the sensitivity of mammography. No suspicious abnormality. These results were verbally communicated with the patient and result sheet given to the patient on 04/23/19. ASSESSMENT: Negative, BI-RAD 1 RECOMMENDATION: Breast MRI of the left breast. (High risk MRI recommended annually) Follow-up diagnostic mammogram of the left breast in 1 year.
== END | disposition home or self-care (01) ==
LOC: RADMAMWWP 09:57
PROVIDERS: ATTEND Surgery
DX: Z08 Encounter for follow-up examination after completed treatment for malignant neoplasm (principal); Z85.3 Personal history of malignant neoplasm of breast; Z90.11 Acquired absence of right breast and nipple
CPT/HCPCS: 77061; 77065

== ENCOUNTER → 2019-09-18 | Outpatient (CLI) | payer OTHER ==
--- NOTE | 2019-09-19 16:02 | BMR ---
EXAMINATION TYPE: MR breast BILAT wo/w con DATE OF EXAM: 09/18/2019 COMPARISON: PET/CT dated 03/03/2019 and MRI breasts dated 07/12/2018 as well as 12/29/2017. Left breast m ammogram dated 04/23/2019. HISTORY: F/U due to personal history of rt breast ca/mastectomy, no symptoms. Personal history of [facility] ign excisional biopsy of the left breast in 1997. Family history of breast cancer in mother at age 67 and an aunt at unspecified age. TECHNIQUE: A series of fat and water weighted images in the long and short axis views of both breasts are obtained in conjunction with dynamic contrast MRI with subtraction technique. The patient was i njected with 8.5 mL intravenous Gadavist gadolinium contrast. Three-dimensional and additional post processing imaging is created on independent workstation and reviewed during official interpretation of this study. FINDINGS: The left breast is noted to be composed of heterogenous fibroglandular tissue demonstrating mild back ground parenchymal enhancement. On the left there is a T2 hyperintense enhancing intramammary lymph node at the 3:00 position. No suspicious mass nor nonmass enhancement is seen of the left breast. The right breast is surgically absent from complete mastectomy. Right axillary lymph node dissection was also performed as there is susceptibility artifact in the right axilla. There is some linear enha ncement along the pectoralis musculature on the right such as on postcontrast image 140 of series 701 without focal nodularity. This is presumably granulation tissue of postoperative change. No suspicious internal mammary, intramammary, nor axillary adenopathy bilaterally. IMPRESSION: BI-RADS 2-benign. Linear enhancement along the right pectoralis muscle at the mastectomy site is presumed to represent enhancing granulation tissue, postsurgical change. In the absence of a clinically suspicious examination annual surveillance MRI and left breast mammogram would be recommen ded. If there is palpable abnormality or clinical suspicion targeted ultrasound could be performed of the right chest wall.
== END | disposition home or self-care (01) ==
LOC: RADMRIMAIN 10:47
PROVIDERS: ATTEND Surgery
DX: Z08 Encounter for follow-up examination after completed treatment for malignant neoplasm (principal); Z85.3 Personal history of malignant neoplasm of breast; Z90.11 Acquired absence of right breast and nipple
CPT/HCPCS: 77049; C8937; A9585

== ENCOUNTER → 2020-04-18 | Outpatient (CLI) | payer OTHER ==
--- NOTE | 2020-04-18 15:59 | PE ---
Nuclear medicine PET/CT HISTORY: Breast carcinoma, subsequent Patient received 11.2 mCi F-18 FDG intravenously in delayed scanning was performed from the skull bas e to the mid thighs. Localization and attenuation correction CT scan was performed Correlation to prior nuclear medicine PET/CT 03/03/2019, MR breast 09/18/2019 Neck and chest: There is no cervical, supraclavicular, mediastinal, axillary, or hilar adenopathy. Pa tient shows post mastectomy change. There is no pleural or pericardial effusion. The nodular appeara nce of the right upper lobe seen on previous exam shows a more confluent soft tissue and groundglass opacity on today's exam, minimal uptake. Scarring in the right upper lobe the subpleural location sit e of patient's mastectomy shows a similar appearance. ABDOMEN: There is no evident liver mass. No retroperitoneal adenopathy. No ascites. No FDG avid foci. Uptake within the bowel is likely physiologic. Uterus shows a bulky appearance. Osseous structures are stable and unremarkable. Some facet arthropathy on the left shows some mild up take at L4-5. Less marrow activity identified in on prior exam. IMPRESSION: No suspicious uptake is identified. There has been interval change in the previously iden tified nodularity in the right upper lobe as described. No suspicious uptake however.
== END | disposition home or self-care (01) ==
LOC: RADPETMAIN 10:47
PROVIDERS: ATTEND Internal Medicine Hematology & Oncology
DX: R91.8 Other nonspecific abnormal finding of lung field (principal); C50.111 Malignant neoplasm of central portion of right female breast
CPT/HCPCS: 78815; A9552

== ENCOUNTER → 2020-07-22 | Outpatient (CLI) | payer BC ==
--- NOTE | 2020-07-22 09:36 | BD ---
EXAMINATION TYPE: Axial Bone Density DATE OF EXAM: 07/22/2020 COMPARISON: 01/14/2010 CLINICAL HISTORY: Height: 61.2 IN Weight: 200 LBS RISK FACTORS HISTORY OF: History of Wrist Fracture: YES LEFT AGE 50 Active: YES Diet low in dairy products/other sources of calcium: YES Postmenopausal woman: AGE 53 Take estrogen and/or progesterone medications: NOT NOW How long: TOOK CONTROL FOR 10 YEARS MEDICATIONS: Additional Medications: ANASTROZOLE, MULTI VIT Additional History: BREAST CANCER WITH CHEMO AND RADIATION EXAM MEASUREMENTS: Bone mineral densitometry was performed using the TopVisible System. Bone mineral density as measured about the Lumbar spine is: ----- L1-L4(G/cm2): 1.082 T Score Values are as follows: ----- L2: -0.8 ----- L3: -0.5 ----- L4: -0.5 ----- L1-L4: -0.8 Bone mineral density has: Decreased -7.0% since study of: 01/14/2010 Bone mineral density about the R hip (g/cm2): 0.937 Bone mineral density about the L hip (g/cm2): 0.935 T Score values are as follows: -----R Neck: -0.7 -----L Neck: -0.7 -----R Total: -0.1 -----L Total: -0.2 Bone mineral density has: Decreased -5.8% since study of: 01/14/2010 IMPRESSION: Normal (Values between +1 and -1 indicate normal bone mass). Consider repeating this study in 5 year s or sooner if there is some new clinical indication. NOTE: T-SCORE=SD OF THE YOUNG ADULT MEAN.
== END | disposition home or self-care (01) ==
LOC: RADBDWWP 08:32
PROVIDERS: ATTEND Internal Medicine Hematology & Oncology
DX: Z79.890 Hormone replacement therapy (principal); C50.111 Malignant neoplasm of central portion of right female breast; Z92.21 Personal history of antineoplastic chemotherapy; Z88.1 Allergy status to other antibiotic agents
CPT/HCPCS: 77080

== ENCOUNTER → 2021-06-18 | Outpatient (CLI) | payer BC ==
--- NOTE | 2021-06-19 14:47 | MM ---
Reason for exam: additional evaluation requested from prior study. Last mammogram was performed 1 year ago. History: Patient is postmenopausal and has history of breast cancer at age 62. Family history of breast cancer in mother at age 67 and breast cancer in aunt. Mastectomy of the right breast, July 2018. Benign excisional biopsy of the left breast, December 30, 1997. Chemotherapy. Radiation therapy of the right breast. Taking antineoplastic beginning at age 62. Physical Findings: Nurse did not find any significant physical abnormalities on exam. MG 3D Diag Mammo W/Cad LT CC, MLO, and XCCL view(s) were taken of the left breast. Prior study comparison: June 16, 2020, left breast MG 3d diag mammo w/cad LT. April 23, 2019, left breast MG 3d diag mammo w/cad LT. The breast tissue is heterogeneously dense. This may lower the sensitivity of mammography. Lateral anterior to middle depth asymmetric density is unchanged from 2017. Ultrasound recommended given her breast pathology. These results were verbally communicated with the patient and result sheet given to the patient on 06/18/21. ASSESSMENT: Incomplete: need additional imaging evaluation, BI-RAD 0 RECOMMENDATION: Ultrasound of the left breast.
--- NOTE | 2021-06-19 14:49 | USB ---
Reason for exam: additional evaluation requested from abnormal screening. History: Patient is postmenopausal and has history of breast cancer at age 62. Family history of breast cancer in mother at age 67 and breast cancer in aunt. Mastectomy of the right breast, July 2018. Benign excisional biopsy of the left breast, December 30, 1997. Chemotherapy. Radiation therapy of the right breast. Taking antineoplastic beginning at age 62. US Breast LT Left complete breast ultrasound includes all four quadrants, the retroareolar region and axilla. Finding demonstrates a 0.5 x 0.5 x 0.3cm oval, benign, cystic lesion at 1 o'clock, a 0.5 x 0.8 x 0.3cm oval, benign, cystic lesion at 1 o'clock and a 1.5 x 2.2 x 0.5cm lymph node at the axilla, prominent but with benign morphology. These results were verbally communicated with the patient and result sheet given to the patient on 06/18/21. ASSESSMENT: Benign, BI-RAD 2 RECOMMENDATION: Follow-up diagnostic mammogram of the left breast in 1 year. Patient should continue monthly self breast exams. A negative report should not preclude additional follow up of suspicious palpable abnormalities.
== END | disposition home or self-care (01) ==
LOC: RADMAMWWP 10:46
PROVIDERS: ATTEND Internal Medicine Hematology & Oncology
DX: R92.2 Inconclusive mammogram (principal); N60.02 Solitary cyst of left breast; Z78.0 Asymptomatic menopausal state; Z80.3 Family history of malignant neoplasm of breast; Z85.3 Personal history of malignant neoplasm of breast
CPT/HCPCS: 77061; 77065

== ENCOUNTER → 2022-06-21 | Outpatient (CLI) | payer BC ==
--- NOTE | 2022-06-21 13:31 | MM ---
Reason for Exam: Additional evaluation requested from prior study. Last mammogram was performed 1 year(s) and 1 month(s) ago. Patient History: Menarche at age 17. First Full-Term at age 30. Postmenopausal. Breast cancer, right, age 62. 07/2018, Mastectomy on the Right side. 12/30/1997, Benign Excisional Biopsy on the left side. Chemotherapy. Radiation Therapy, right. Maternal aunt had breast cancer. Mother had breast cancer, age 67. Prior Study Comparison: 04/23/2019 Left Diagnostic Mammogram, [facility]. 06/16/2020 Left Diagnostic Mammogram, [facility]. 06/18/2021 Left Diagnostic Mammogram, [facility]. Tissue Density: Left: The breast tissue is heterogeneously dense. This may lower the sensitivity of mammography. Findings: Analyzed By CAD. Unchanged asymmetric density lateral on the CC view. Scattered benign resendez as well as scattered benign punctate and round calcifications. Lateral benign vascular calcifications. Nodular focal asymmetry appears to localize to the upper quadrant and is more defined from prior. It incompletely disperses on additional views. Further ultrasound evaluation recommended. Overall Assessment: Incomplete: need additional imaging evaluation, BI-RAD 0 Management: Diagnostic Breast Ultrasound of the left breast. For the upper outer quadrant focal asymmetry. Electronically signed and approved by: Paulino Mckeon M.D. Radiologist
--- NOTE | 2022-06-21 14:55 | USB ---
Reason for Exam: Additional evaluation requested from abnormal screening. Patient History: Menarche at age 17. First Full-Term at age 30. Postmenopausal. Breast cancer, right, age 62. 07/2018, Mastectomy on the Right side. 12/30/1997, Benign Excisional Biopsy on the left side. Chemotherapy. Radiation Therapy, right. Maternal aunt had breast cancer. Mother had breast cancer, age 67. Prior Study Comparison: 04/23/2019 Left Diagnostic Mammogram, [facility]. 06/16/2020 Left Diagnostic Mammogram, [facility]. 06/18/2021 Left Diagnostic Mammogram, [facility]. Findings: The upper inner quadrant of the left breast, the axilla of the left breast and the retroareolar of the left breast were scanned. There is a tiny 4 mm too small to characterize lesion within some dense tissue clock, 5 cm from the nipple, likely tiny cyst. No other solid or cystic lesion is seen. However, there are a couple excessively thickened lymph nodes within the left axilla. The largest measures 1.8 x 1.0 x 1.7 cm with cortical thickening up to 7 mm. Overall Assessment: Suspicious, BI-RAD 4 Management: Ultrasound Core Biopsy of the left breast. For the thickened (cortex 7 mm) and enlarged (1.7 cm short axis) lymph node in the left axilla. Patient with history of previous right breast cancer and mastectomy. Electronically signed and approved by: Paulino Mckeon M.D. Radiologist
== END | disposition home or self-care (01) ==
LOC: RADMAMWWP 12:43
PROVIDERS: ATTEND Internal Medicine Hematology & Oncology
DX: R92.8 Other abnormal and inconclusive findings on diagnostic imaging of breast (principal); Z80.3 Family history of malignant neoplasm of breast; Z78.0 Asymptomatic menopausal state
CPT/HCPCS: 77061; 77065

== ENCOUNTER → 2022-06-30 | Day surgery (SDC) | payer BC ==
--- NOTE | 2022-07-06 10:48 | USB ---
Prior Study Comparison: 06/16/2020 Left Diagnostic Mammogram, [facility]. 06/18/2021 Left Diagnostic Mammogram, [facility]. 06/21/2022 Left MG 3D diag mammo w/cad LT, [facility]. Pathology Description: Location: upper outer quadrant, axilla. Marker Left Behind. Needle Type: VaD Cores: 4 Skin Nicks: 1 Gauge: 14 The procedure of ultrasound guided core biopsy was explained to the patient. Benefits, alternatives, and risks were discussed. An informed consent was then obtained. The patient was placed in supine positioning for imaging and for the procedure. The overlying skin was prepped and draped in usual sterile fashion. Lidocaine buffered with bicarbonate was used as anesthetic into the skin and subcutaneous tissue up to area of concern in the left axilla. A olivier was made with surgical scalpel. Under ultrasound guidance, a 12-gauge vacuum assisted biopsy gun device was used to obtain 4 core samples. Following this, a biopsy clip was left in lesion. The patient tolerated the procedure well without any immediate complication. The patient was kept in the radiology department for short stay after the procedure and then discharged home in stable condition. Impression: Successful, uncomplicated ultrasound guided core biopsy of area of concern in the left axilla, full pathology results to follow. Pathology Results: Result: Malignant. LEFT AXILLA, BIOPSY: Mo tissue positive for metastatic mammary lobular carcinoma (see note). Overall Assessment: Malignant Management: Surgical Consultation of the left breast. (Second look whole left breast ultrasound. If negative by ultrasound, either further mammography work up or breast MRI). Electronically signed and approved by: Geovanni Ashton M.D. Radiologis
== END ==
LOC: RADUSWWP 09:57
PROVIDERS: ATTEND Internal Medicine Hematology & Oncology
DX: C50.912 Malignant neoplasm of unspecified site of left female breast (principal); Z85.3 Personal history of malignant neoplasm of breast; Z90.11 Acquired absence of right breast and nipple; Z92.3 Personal history of irradiation; Z92.21 Personal history of antineoplastic chemotherapy; Z88.1 Allergy status to other antibiotic agents; Z79.899 Other long term (current) drug therapy; Z79.811 Long term (current) use of aromatase inhibitors; Z80.9 Family history of malignant neoplasm, unspecified
CPT/HCPCS: 88305; 88342; 88341; 19083; A4648

== ENCOUNTER → 2022-08-02 | Outpatient (CLI) | payer BC ==
[2022-08-02 11:16] LABS: African American GFR (CKD) >90 (>60 ml/min/1.73 sqM); Blood Urea Nitrogen 23 mg/dL (7-17); Non-African American GFR(CKD) >90 (>60 ml/min/1.73 sqM)
--- NOTE | 2022-08-02 13:22 | CT ---
EXAMINATION TYPE: CT ChestAbdPelvis w con CT DLP: 1839 mGycm, Automated exposure control for dose reduction was used. DATE OF EXAM: 08/02/2022 12:28 PM COMPARISON: THIS EXAM WAS READ DURING PACS DOWNTIME, NO PRIORS AVAILABLE. CLINICAL INDICATION:Female, 66 years old with history of C77.3 SEC AND UNSP MALIG NEOPLASM OF AXILLA AND UP;, Breast cancer and lymph involvement-right, spot on left Technique: Multiple axial images of the chest, abdomen, and pelvis were obtained. Two-dimensional cor onal and sagittal reconstructions were obtained. Contrast used:70 mL of Isovue 300 with IV Contrast, Oral contrast used: with Oral Contrast Findings: CHEST: LUNGS/ PLEURA: Mild apical scarring. No evidence of focal consolidation, pneumothorax or pleural effu jez. No suspicious pulmonary nodules. AIRWAY: Patent and unremarkable. HEART: Size within normal limits. MEDIASTINUM: No gross evidence of adenopathy. VASCULATURE: No aortic aneurysm. MUSCULOSKELETAL: No acute osseous abnormalities. SOFT TISSUES/LYMPH NODES: The right breast is surgically absent. There is no evidence of soft tissue to suggest recurrence. There is no lymphadenopathy present. LOWER NECK: No significant findings. ABDOMEN: ABDOMEN LIVER: Diffusely hypoattenuating parenchyma. GALLBLADDER AND BILE DUCTS: Unremarkable. PANCREAS: Unremarkable. SPLEEN: Unremarkable. ADRENAL GLANDS: Unremarkable. KIDNEYS AND URETERS: No evidence of hydronephrosis or renal calculus. The ureters are unremarkable. PELVIS BLADDER: Unremarkable REPRODUCTIVE: Fibroid changes of the uterus are present. ABDOMEN & PELVIS STOMACH AND BOWEL: No evidence of bowel obstruction. PERITONEUM: No evidence of pneumoperitoneum or free fluid. VASCULATURE: No evidence of aortic aneurysm. Mild atherosclerosis of the arterial vasculature. MUSCULOSKELETAL: No acute osseous abnormalities, no suspicious osseous lesions. Mild multilevel disc degeneration changes. LYMPH NODES: No gross evidence for lymphadenopathy. SOFT TISSUE/ABDOMINAL WALL: Unremarkable IMPRESSION: 1. Postsurgical changes of the right breast without evidence of recurrence or evidence for metastati c disease. 2. Fibroid changes to the uterus. 3. Hepatic steatosis
--- NOTE | 2022-08-02 15:27 | NM ---
EXAMINATION TYPE: NM bone scan whole body, HI bone SPECT DATE OF EXAM: 08/02/2022 COMPARISON: CT chest abdomen pelvis 08/02/2022, HISTORY: C77.3 SEC AND UNSP MALIG NEOPLASM OF AXILLA AND UP Delayed whole-body scanning was performed following the injection of 22.6 mCi Tc 99m MDP. Images acq uired 3 hours post injection. Bone SPECT was obtained. FINDINGS: No abnormal uptake is identified within the appendicular or axial skeleton to suggest metastatic dise ase. Increased uptake within the bilateral shoulders, sternoclavicular, knees, and midfoot is consistent w ith degenerative changes. Normal urinary bladder and kidney tracer activity. No other photopenic area s are areas of increased activity are identified. IMPRESSION: Nothing to suggest metastatic osseous disease.
== END | disposition home or self-care (01) ==
LOC: RADNMMAIN 10:04
PROVIDERS: ATTEND Surgery
DX: C77.3 Secondary and unspecified malignant neoplasm of axilla and upper limb lymph nodes (principal); K76.0 Fatty (change of) liver, not elsewhere classified; D25.9 Leiomyoma of uterus, unspecified
CPT/HCPCS: 82565; 84520; 71260; 74177; 36415; 78306; 78803; A9503; Q9967 ×2

== ENCOUNTER → 2023-06-08 | Outpatient (CLI) | payer BC ==
--- NOTE | 2023-06-09 11:06 | CT ---
EXAMINATION TYPE: CT chest wo con DATE OF EXAM: 06/08/2023 COMPARISON: 01/26/2023 HISTORY: lung nodules CT DLP: 804 mGycm. Automated Exposure Control for Dose Reduction was Utilized. TECHNIQUE: CT scan of the thorax is performed without IV contrast. FINDINGS: LUNGS: There is biapical pleural scarring is stable. Subpleural nodules noted in the prior exam. Stable robert uring less than 5 mm. There is peripheral subsegmental consolidation now seen in the left upper lobe most likely the basis of chronic atelectasis or scarring. Pleural based thickening involving the right chest is also seen stable. There is no consolidation. No pleural effusion, pneumothorax or overt failure. There are no suspiciou s pulmonary MEDIASTINUM: Lack of IV contrast is noted to limit evaluation for mediastinal and especially hilar ad enopathy. There are no definitive greater than 1 cm hilar or mediastinal lymph nodes. No cardiomega ly or pericardial effusion is seen. OTHER: Postmastectomy changes are seen in the right. There is mild skin thickening in the left breas t should be correlated clinically. Hypertrophic and degenerative changes. There is a small hiatal hernia. There is hypertrophic degenerative changes spine. Headaches and ptosi s. IMPRESSION: 1. No suspicious pulmonary nodules. Subpleural micronodules are stable, benign and requires no additi onal follow-up. 2. Areas of pleural thickening and subsegmental consolidation are likely secondary to scarring and at electasis. May be post therapeutic. 3. No pathologic adenopathy. 4. There is postmastectomy changes on the right. Findings stable. 5. Persistent skin thickening and increased breast attenuation on the left. This could be related to post therapeutic changes. Correlate clinically as other etiologies include chronic mastitis or inflam matory breast cancer
== END | disposition home or self-care (01) ==
LOC: RADCTMAIN 17:04
PROVIDERS: ATTEND Internal Medicine Hematology & Oncology
DX: C50.111 Malignant neoplasm of central portion of right female breast (principal); J92.9 Pleural plaque without asbestos; R23.4 Changes in skin texture
CPT/HCPCS: 71250

== ENCOUNTER → 2023-06-22 | Outpatient (CLI) | payer BC ==
--- NOTE | 2023-06-24 08:08 | MM ---
Reason for Exam: Hx of breast cancer, mastectomy. Last screening mammogram was performed 12 month(s) ago. Patient History: Menarche at age 17. First Full-Term at age 30. Postmenopausal. Breast cancer, right, age 62. Breast cancer, left, age 66. 06/30/2022, Malignant US biopsy breast VAD LT on the left side. 07/2018, Mastectomy on the Right side. 12/30/1997, Benign Excisional Biopsy on the left side. Chemotherapy. Radiation Therapy, right. Maternal aunt had breast cancer. Mother had breast cancer, age 67. Prior Study Comparison: 06/16/2020 Left Diagnostic Mammogram, [facility]. 06/18/2021 Left Diagnostic Mammogram, [facility]. 06/21/2022 Left MG 3D diag mammo w/cad LT, [facility]. Tissue Density: Left: The breast tissue is heterogeneously dense. This may lower the sensitivity of mammography. Findings: There is no suspicious group of microcalcifications or new suspicious mass in either breast. Benign appearing calcifications within the left breast. Postsurgical treatment changes of the left breast. Overall Assessment: Benign, BI-RAD 2 Management: Screening Mammogram of the left breast in 1 year. A clinical breast exam by your physician is recommended on an annual basis and results should be correlated with mammographic findings. Note on Demetrice scores and lifetime risk: 1. A Demetrice score greater than 3% is considered moderate risk. If this is the case, consider specialist referral to assess eligibility for a risk reducing agent. If overall lifetime risk for the development of breast cancer is 20% or higher, the patient may qualify for future screening with alternating mammogram and breast MRI. Electronically signed and approved by: Eris Flores D.O.
== END | disposition home or self-care (01) ==
LOC: RADMAMWWP 09:47
PROVIDERS: ATTEND Internal Medicine Hematology & Oncology
DX: Z12.31 Encounter for screening mammogram for malignant neoplasm of breast (principal); C50.111 Malignant neoplasm of central portion of right female breast; R19.7 Diarrhea, unspecified; M54.50 Low back pain, unspecified; Z78.0 Asymptomatic menopausal state; Z71.3 Dietary counseling and surveillance; Z80.3 Family history of malignant neoplasm of breast
CPT/HCPCS: 77067

== ENCOUNTER → 2023-09-14 | Outpatient (CLI) | payer BC ==
[2023-09-14 11:13] LABS: African American GFR (CKD) >90 (>60 ml/min/1.73 sqM); Blood Urea Nitrogen 20 mg/dL (7-17); Non-African American GFR(CKD) >90 (>60 ml/min/1.73 sqM)
--- NOTE | 2023-09-14 12:26 | CT ---
EXAMINATION TYPE: CT ChestAbdPelvis w con DATE OF EXAM: 09/14/2023 COMPARISON: 01/26/2023 and 06/08/2023 HISTORY: Breast ca CT DLP: 1771 mGycm CONTRAST: CT scan of the chest, abdomen and pelvis is performed with Oral Contrast and with IV Contrast, patien t injected with 100 mL of Isovue 300. CT Chest: LUNGS: The lungs are clear and free of infiltrate or atelectasis. Posttreatment changes right upper l obe. Scattered fibrotic change is subpleural in location left upper lobe. No pulmonary nodule or mass is detected. No pleural effusion . MEDIASTINUM: Thoracic aorta is of normal caliber. The heart is not enlarged. No evidence for media stinal mass or adenopathy. HILAR STRUCTURES: No evidence for mass. No hilar adenopathy is appreciated. OTHER: Right mastectomy changes noted. CONTRAST CT ABDOMEN AND PELVIS FINDINGS: LIVER/GB: No calcified gallstones. No space occupying hepatic lesion. Biliary tree is of normal ca liber. PANCREAS: No inflammation. No distinct mass. SPLEEN: No splenic enlargement. No lesion seen. ADRENALS: No nodule. No thickening. KIDNEYS/BLADDER: No hydronephrosis. No nephrolithiasis. No disctinct renal mass. BOWEL: Normal appendix. Normal bowel caliber. No inflammation. GENITAL ORGANS: Lobulated uterus compatible with underlying leiomyomatous change. LYMPH NODES: No greater than 1cm abdominal or pelvic lymph nodes are appreciated. AORTA: No significant abnormality. OSSEOUS STRUCTURES: No significant abnormality is seen. OTHER: No significant additional abnormality is seen. IMPRESSION: 1. No evidence for metastatic disease to the chest, abdomen or pelvis.
--- NOTE | 2023-09-14 22:27 | NM ---
EXAMINATION TYPE: NM bone scan whole body DATE OF EXAM: 09/14/2023 COMPARISON: NONE HISTORY: Breast cancer Delayed whole-body scanning was performed following the injection of 22.9 mCi Tc 99m MDP. Images wer e acquired 3 hours post injection. FINDINGS: Focal uptake is within the bilateral mid feet and at the first metatarsophalangeal joint spaces bilat eral feet. Some uptake is within the right ankle better visualized on the posterior images. There is focal uptake in the bilateral knees. Uptake is at the acromioclavicular junctions. These findings are nonspecific but likely related to degenerative changes. There is likely some degenerative change within the left posterior mid cervical spine. Milder uptake is in the lower right spine which could be degenerative in nature. There is some uptake within the right anterior mandible. Correlate for periodontal disease. IMPRESSION: 1. Uptake within the joint space is more likely degenerative in nature. 2. Likely periodontal disease right mandible. 3. Punctate area of uptake within the left posterior cervical spine likely degenerative. 4. No Suspicious uptake to suggest metastatic disease.
== END | disposition home or self-care (01) ==
LOC: RADNMMAIN 09:10
PROVIDERS: ATTEND Internal Medicine Hematology & Oncology
DX: C50.111 Malignant neoplasm of central portion of right female breast (principal); M54.50 Low back pain, unspecified; Z71.3 Dietary counseling and surveillance; R93.7 Abnormal findings on diagnostic imaging of other parts of musculoskeletal system; R19.7 Diarrhea, unspecified
CPT/HCPCS: 82565; 84520; 71260; 74177; 36415; 78306; A9503; Q9967

== ENCOUNTER → 2023-12-30 | Outpatient (CLI) | payer BC ==
--- NOTE | 2023-12-30 12:21 | CA ---
Transthoracic Echo Report Name: Gabrielle Matta Age: 68 Gender: F : 1955 Exam Date: 12/30/2023 08:25 Exam Location: [facility] Ht (in): 63 Wt (lb): 215 Ordering Physician: Betty Bond MD Attending/Referring Phys: Mail Rider Anu Peres RDCS Procedure CPT: Indications: R01.1 CARDIAC MURMUR, UNSPECIFIED Cardiac Hx: Technical Quality: Technically difficult study Contrast 1: Definity Total Dose (mL): 2 Contrast 2: Agitated Saline Total Dose (mL): 9 MEASUREMENTS (Male / Female) Normal Values 2D ECHO LV Diastolic Diameter PLAX 4.3 cm 4.2 - 5.9 / 3.9 - 5.3 cm LV Systolic Diameter PLAX 2.9 cm IVS Diastolic Thickness 1.4 cm 0.6 - 1.0 / 0.6 - 0.9 cm LVPW Diastolic Thickness 1.3 cm 0.6 - 1.0 / 0.6 - 0.9 cm LV Relative Wall Thickness 0.6 RV Internal Dim ED PLAX 2.9 cm LA Volume 60.2 cm??? 18 - 58 / 22 - 52 cm??? LA Volume Index 28.2 cm???/m??? 16 - 28 cm???/m??? M-MODE Aortic Root Diameter MM 2.9 cm LA Systolic Diameter MM 4.3 cm LA Ao Ratio MM 1.5 AV Cusp Separation MM 1.2 cm DOPPLER AV Peak Velocity 134.3 cm/s AV Peak Gradient 7.2 mmHg AV Mean Velocity 98.6 cm/s AV Mean Gradient 4.2 mmHg AV Velocity Time Integral 28.1 cm LVOT Peak Velocity 118.2 cm/s LVOT Peak Gradient 5.6 mmHg LVOT Velocity Time Integral 24.1 cm MV Area PHT 3.4 cm??? Mitral E Point Velocity 58.3 cm/s Mitral A Point Velocity 117.7 cm/s Mitral E to A Ratio 0.5 MV Deceleration Time 222.9 ms MV E' Velocity 4.1 cm/s Mitral E to MV E' Ratio 14.4 TR Peak Velocity 281.7 cm/s TR Peak Gradient 31.7 mmHg Right Ventricular Systolic Press 36.7 mmHg FINDINGS Left Ventricle Moderately increased left ventricular wall thickness. Left ventricular cavity size normal. No obvious regional wall motion abnormalities. Left ventricular ejection fraction is estimated at 55-60 %. Right Ventricle Normal right ventricular size and function. Mild pulmonary hypertension. Right Atrium Right atrium not well visualized. Negative agitated saline bubble study for right to left shunt. Left Atrium Mildly increased left atrial volume. Mildly increased left atrial area. Mitral Valve Mitral valve not well visualized. No mitral stenosis. No mitral regurgitation. Aortic Valve Aortic valve not well visualized. Tricuspid Valve Structurally normal tricuspid valve. Mild tricuspid regurgitation. Pulmonic Valve Pulmonic valve not well visualized. No pulmonic stenosis. Pericardium No pericardial effusion. Aorta Normal size aortic root and proximal ascending aorta. CONCLUSIONS Technically difficult study. Definity ECHO contrast used for improved visualization of the endocardial borders (inadequate visualization of two or more contiguous segments). Left ventricular size and systolic function are normal Very limited Doppler study with mild tricuspid regurgitation and mild pulmonary hypertension Previewed by: Dr. Moi Meza MD (Electronically Signed) Final Date: 30 December 2023 12:20
== END | disposition home or self-care (01) ==
LOC: RADECHMAIN 08:14
PROVIDERS: ATTEND Internal Medicine
DX: Z00.00 Encounter for general adult medical examination without abnormal findings (principal); I36.1 Nonrheumatic tricuspid (valve) insufficiency; I27.20 Pulmonary hypertension, unspecified; R01.1 Cardiac murmur, unspecified
CPT/HCPCS: 93306; Q9957

== ENCOUNTER → 2024-03-07 | Outpatient (CLI) | payer BC ==
[2024-03-07 14:29] LABS: African American GFR (CKD) >90 (>60 ml/min/1.73 sqM); Blood Urea Nitrogen 19 mg/dL (7-17); Non-African American GFR(CKD) >90 (>60 ml/min/1.73 sqM)
--- NOTE | 2024-03-07 16:32 | CT ---
EXAMINATION TYPE: CT ChestAbdPelvis w con DATE OF EXAM: 03/07/2024 COMPARISON: 09/14/2023, 01/26/2023 HISTORY: 68-year-old female C50.111, h/o breast CA, f/u TECHNIQUE: Contiguous axial scanning of the chest, abdomen, and pelvis performed with IV Contrast, pa tient injected with 100 mL of Isovue 300. Delayed images through the kidneys were obtained. Coronal/s agittal reconstructions performed. CT DLP: 1443 mGycm Automated exposure control for dose reduction was used. FINDINGS: CHEST: Heart upper limits of normal in size without pericardial effusion. Tortuous distal aortic arch with mild cardiac calcification and conventional arch vessel branching an atomy. Patient status post right mastectomy. No thoracic lymphadenopathy by CT size criteria. Some subpleural reticulation anterior mid lung on both sides, likely post radiation therapy changes o n the right. Etiology unclear on the left but unchanged. Some minimal groundglass at the bases likely scarring is unchanged as well. No pleural effusion. ABDOMEN: No focal liver lesion or biliary ductal dilatation. Portal venous system is patent. Gallbladder, adrenal glands, kidneys, spleen, and pancreas within normal limits. No dilated small bowel, free fluid, or free air. No mesenteric or retroperitoneal lymphadenopathy. No significant stool burden. Oral contrast progressed to the rectum. There is a 2.6 cm stool ball wit hin the distal sigmoid. No pericolonic inflammatory change. PELVIS: Bladder partially distended. Uterus is anteverted. Suspect fibroid change along the right lateral asp ect of the uterus. Both ovaries are visualized. Multiple pelvic phlebolith. No abnormal fluid collect ion in the pelvis or pelvic lymphadenopathy. BONES: Hypertrophic facet arthropathy lower lumbar spine. No osseous process. IMPRESSION: 1. STATUS POST RIGHT MASTECTOMY. 2. NO FINDINGS TO SUGGEST METASTATIC DISEASE IN THE CHEST, ABDOMEN, OR PELVIS.
== END | disposition home or self-care (01) ==
LOC: RADCTMAIN 13:25
PROVIDERS: ATTEND Internal Medicine Hematology & Oncology
DX: C50.111 Malignant neoplasm of central portion of right female breast (principal); R19.7 Diarrhea, unspecified; M54.50 Low back pain, unspecified; Z71.3 Dietary counseling and surveillance
CPT/HCPCS: 82565; 84520; 71260; 74177; 36415; Q9967

== ENCOUNTER → 2024-06-26 | Outpatient (CLI) | payer BC ==
--- NOTE | 2024-07-24 11:24 | MM ---
Reason for Exam: Screening (asymptomatic). Last screening mammogram was performed 12 month(s) ago. Patient History: Menarche at age 17. First Full-Term at age 30. Postmenopausal. Breast cancer, right, age 62. Breast cancer, left, age 66. 06/30/2022, Malignant US biopsy breast VAD LT on the left side. 07/2018, Mastectomy on the Right side. 12/30/1997, Benign Excisional Biopsy on the left side. Chemotherapy. Radiation Therapy, right. Maternal aunt had breast cancer. Mother had breast cancer, age 67. Prior Study Comparison: 03/21/2017 Bilateral Screening Mammogram, [facility]. 04/23/2019 Left Diagnostic Mammogram, [facility]. 06/16/2020 Left Diagnostic Mammogram, [facility]. 06/18/2021 Left Diagnostic Mammogram, [facility]. 06/21/2022 Left MG 3D diag mammo w/cad LT, [facility]. 06/22/2023 Left MG 3D scr grupo unilateral w/cad., [facility]. Tissue Density: Left: The breasts are heterogeneously dense, which may obscure small masses. Findings: Left breast: There is no suspicious group of microcalcifications or new suspicious mass. Overall Assessment: Negative, BI-RAD 1 Management: Screening Mammogram of the left breast in [address] [facility] will attempt to contact patient to return for supplemental views and ultrasound if indicated. Patient should continue monthly self-breast exams. A clinical breast exam by your physician is recommended on an annual basis. This exam should not preclude additional follow-up of suspicious palpable abnormalities. Note on Demetrice scores and lifetime risk: 1. A Demetrice score greater than 3% is considered moderate risk. If this is the case, consider specialist referral to assess eligibility for a risk reducing agent. 2. If overall lifetime risk for the development of breast cancer is 20% or higher, the patient may qualify for future screening with alternating mammogram and breast MRI. Electronically signed and approved by: Raymond Moon DO
== END | disposition home or self-care (01) ==
LOC: RADMAMWWP 10:32
PROVIDERS: ATTEND Internal Medicine Hematology & Oncology
DX: Z12.31 Encounter for screening mammogram for malignant neoplasm of breast (principal); C50.111 Malignant neoplasm of central portion of right female breast; Z78.0 Asymptomatic menopausal state; Z80.3 Family history of malignant neoplasm of breast; Z90.11 Acquired absence of right breast and nipple
CPT/HCPCS: 77067

== ENCOUNTER → 2024-09-04 | Outpatient (CLI) | payer BC ==
[2024-09-04 11:17] LABS: African American GFR (CKD) >90 (>60 ml/min/1.73 sqM); Blood Urea Nitrogen 20 mg/dL (7-17); Non-African American GFR(CKD) >90 (>60 ml/min/1.73 sqM)
--- NOTE | 2024-09-04 13:14 | CT ---
EXAMINATION TYPE: CT ChestAbdPelvis w con CT DLP: 1926.6 mGycm, Automated exposure control for dose reduction was used. DATE OF EXAM: 09/04/2024 12:54 PM COMPARISON: CT chest 7 pelvis 03/07/2024, 09/14/2023, 01/26/2023, CT chest 06/08/2023. CLINICAL INDICATION:Female, 68 years old with history of C50.111 BREAST CA; [facility], f/u breast ca Technique: Multiple axial images of the chest, abdomen, and pelvis were obtained following the intrav enous administration of 100 mL Isovue-300. Oral contrast was administered. Two-dimensional coronal an d sagittal reconstructions were obtained. Findings: CHEST: LUNGS/ PLEURA: No pleural effusion, pneumothorax or focal consolidation. Similar subpleural reticular anterior bilateral midlung likely post radiation changes on the right. No suspicious pulmonary nodul e or mass. AIRWAY: Patent and unremarkable.. HEART: Size within normal limits. No pericardial effusion. MEDIASTINUM: No evidence of adenopathy. VASCULATURE: No aortic aneurysm. MUSCULOSKELETAL: No acute osseous abnormalities. No aggressive osseous lesion. SOFT TISSUES/LYMPH NODES: No axillary adenopathy. Postsurgical changes from right mastectomy. LOWER NECK: No significant findings. ABDOMEN: ABDOMEN LIVER: Unremarkable GALLBLADDER AND BILE DUCTS: Unremarkable. PANCREAS: Unremarkable. SPLEEN: Unremarkable. ADRENAL GLANDS: Unremarkable. KIDNEYS AND URETERS: No evidence of hydronephrosis or renal calculus. The ureters are unremarkable. PELVIS BLADDER: Unremarkable REPRODUCTIVE: Suspected fibroid along the right lateral aspect of the uterus again. Anteverted uterus . ABDOMEN & PELVIS STOMACH AND BOWEL: Stomach and duodenum are unremarkable. No focal bowel wall thickening or surroundi ng inflammatory changes. Enteric contrast reaches the ascending colon. Distal colonic diverticulosis. No evidence of bowel obstruction. PERITONEUM: No evidence of pneumoperitoneum or free fluid. VASCULATURE: Mild atherosclerotic calcifications are present throughout the abdominal aorta and its b ranches. No abdominal aortic aneurysm. Pelvic phleboliths. MUSCULOSKELETAL: No acute osseous abnormalities. Degenerative changes of the lower lumbar spine. No a ggressive osseous lesion. Right hip osteoarthritic change. LYMPH NODES: No evidence for lymphadenopathy. SOFT TISSUE/ABDOMINAL WALL: Unremarkable IMPRESSION: Status post right mastectomy without evidence for metastatic disease within the chest, abdomen or pel vis. [facility], , 09/04/2024 1:12 PM
== END ==
LOC: RADCTMAIN 10:32
PROVIDERS: ATTEND Internal Medicine Hematology & Oncology
CPT/HCPCS: 36415; 71260; 74177; 82565; 84520

== ENCOUNTER → 2025-03-05 | Outpatient (CLI) | payer BC ==
[2025-03-05 11:07] LABS: African American GFR (CKD) >90 (>60 ml/min/1.73 sqM); Blood Urea Nitrogen 23 mg/dL (7-17); Non-African American GFR(CKD) >90 (>60 ml/min/1.73 sqM)
--- NOTE | 2025-03-05 14:08 | CT ---
EXAMINATION TYPE: CT ChestAbdPelvis w con CT DLP: 1892 mGycm, Automated exposure control for dose reduction was used. DATE OF EXAM: 03/05/2025 12:46 PM COMPARISON: Multiple CT chest abdomen and pelvis with most recent 09/04/2024 CLINICAL INDICATION:Female, 69 years old with history of C50.111 BREAST CANCER; [facility], f/u for breast c a. Technique: Multiple axial images of the chest, abdomen, and pelvis were obtained following the intrav enous administration of 100 mL Isovue-300. Oral contrast was administered. Two-dimensional coronal an d sagittal reconstructions were obtained. Findings: CHEST: LUNGS/ PLEURA: No pleural effusion, pneumothorax or focal consolidation. Similar subpleural reticular anterior bilateral midlung likely post radiation changes on the right. Similar biapical pleural pare nchymal groundglass scarring. No suspicious pulmonary nodule or mass. AIRWAY: Patent and unremarkable.. HEART: Size within normal limits. No pericardial effusion. MEDIASTINUM: No evidence of adenopathy. VASCULATURE: No aortic aneurysm. MUSCULOSKELETAL: No acute osseous abnormalities. No aggressive osseous lesion. Endplate sclerosis inv olving the anterior aspect at the T9-T10 disc space. SOFT TISSUES/LYMPH NODES: No axillary adenopathy. Postsurgical changes from right mastectomy. LOWER NECK: No significant findings. ABDOMEN: ABDOMEN LIVER: Unremarkable GALLBLADDER AND BILE DUCTS: Unremarkable. PANCREAS: Unremarkable. SPLEEN: Unremarkable. ADRENAL GLANDS: Unremarkable. KIDNEYS AND URETERS: No evidence of hydronephrosis or renal calculus. The kidneys enhance symmetrical ly. Contrast is demonstrated within both collecting systems and proximal ureters on the delayed phase . PELVIS BLADDER: Unremarkable REPRODUCTIVE: Suspected fibroid along the right lateral aspect of the uterus again with dystrophic ca lcification. Anteverted uterus. ABDOMEN & PELVIS STOMACH AND BOWEL: Stomach and duodenum are unremarkable. No focal bowel wall thickening or surroundi ng inflammatory changes. Enteric contrast reaches the transverse colon. Distal colonic diverticulosis without surrounding inflammatory changes. No evidence of bowel obstruction. PERITONEUM: No evidence of pneumoperitoneum or free fluid. VASCULATURE: Mild atherosclerotic calcifications are present throughout the abdominal aorta and its b ranches. No abdominal aortic aneurysm. Pelvic phleboliths. MUSCULOSKELETAL: No acute osseous abnormalities. Degenerative changes of the lower lumbar spine. No a ggressive osseous lesion. Right hip osteoarthritic change. LYMPH NODES: No evidence for lymphadenopathy. SOFT TISSUE/ABDOMINAL WALL: Unremarkable IMPRESSION: Status post right mastectomy without evidence for metastatic disease within the chest, abdomen or pel vis. [facility], , 03/05/2025 2:06 PM
== END | disposition home or self-care (01) ==
LOC: RADCTMAIN 10:20
PROVIDERS: ATTEND Internal Medicine Hematology & Oncology
DX: C50.111 Malignant neoplasm of central portion of right female breast (principal); R19.7 Diarrhea, unspecified; R53.0 Neoplastic (malignant) related fatigue; K57.30 Diverticulosis of large intestine without perforation or abscess without bleeding; Z71.3 Dietary counseling and surveillance; Z90.11 Acquired absence of right breast and nipple
CPT/HCPCS: 82565; 84520; 71260; 74177; 36415; Q9967